=== PATIENT | female | born 1970 | race Caucasian/White ===

== ENCOUNTER 2017-10-11 14:19 | Inpatient (IN) | payer OTHER ==
[2017-10-11] MEDS ORDERED: Sodium Chloride 0.9% 1000 ML 1,000 ML IV STA (15:32)
[2017-10-11] MEDS ORDERED: Phenergan 25 MG INJ IV ONE (15:33)
--- NOTE | 2017-10-11 15:37 | ERPHSYRPT ---
- History of Present Illness Time Seen by Provider: 10/11/17 15:33 Historian: patient Exam Limitations: no limitations Patient Subjective Stated Complaint: pt co pain to abd since last night, pain to left side Triage Nursing Assessment: pt alert, resp easy, skin w/d/p. abd soft ,tender to palapate Physician History: 46-year-old white female with history of migraines, high blood pressure, asthma , hypoglycemia, arthritis, osteoporosis She arrives with complaint of pain in her left the lower quadrant in the periumbilical area symptoms since last night she states she has not been vomiting but she has been nauseous. She states pain is severe worse with movement. Past medical history includes migraines, high blood pressure, asthma, hypoglycemia, arthritis, osteoporosis. Past surgical history includes tubal ligation, left total knee arthroplasty right total hip arthroplasty and ORIF of the right forearm. Social history positive for tobacco use denies alcohol or illicit drugs. Timing/Duration: yesterday Activities at Onset: none Quality: aching, cramping Abdominal Pain Onset Location: LLQ, periumbilical Pain Radiation: flank Severity of Pain-Max: moderate Severity of Pain-Current: moderate Modifying Factors: Improves With: movement Associated Symptoms: nausea, No back, No chest pain, No diaphoresis, No diarrhea , No fever/chills, No fatigue, No headache, No heartburn, No loss of appetite, No neck pain, No rash, No shortness of breath, No syncope, No vomiting, No weakness Previous symptoms: no prior history Allergies/Adverse Reactions: codeine [Codeine] Allergy (Intermediate, Verified 04/26/13 20:46) itch morphine Allergy (Verified 10/11/17 14:47) Hx Tetanus, Diphtheria Vaccination/Date Given: Yes Hx Influenza Vaccination/Date Given: No Hx Pneumococcal Vaccination/Date Given: No Immunizations Up to Date: Yes - Review of Systems Constitutional: No Fever, No Chills Eyes: No Symptoms Ears, Nose, & Throat: No Symptoms Respiratory: No Cough, No Dyspnea Cardiac: No Chest Pain, No Edema, No Syncope Abdominal/Gastrointestinal: Abdominal Pain, Nausea, No Vomiting, No Diarrhea, No Constipation, No Hematemesis, No Hematochezia, No Melena, No Dysphagia, No Appetite Changes Genitourinary Symptoms: No Dysuria Musculoskeletal: No Back Pain, No Neck Pain Skin: No Rash Neurological: No Dizziness, No Focal Weakness, No Sensory Changes Psychological: No Symptoms Endocrine: No Symptoms All Other Systems: Reviewed and Negative - Past Medical History Pertinent Past Medical History: No Neurological History: Migraines ENT History: No Pertinent History Cardiac History: Hypertension Respiratory History: Asthma Endocrine Medical History: Hypoglycemia Musculoskeletal History: Osteoarthritis, Osteoporosis, Other (See ROS) GI Medical History: No Pertinent History History: No Pertinent History Psycho-Social History: No Pertinent History Female Reproductive Disorders: No Pertinent History - Past Surgical History Past Surgical History: Yes Neuro Surgical History: No Pertinent History Cardiac: No Pertinent History Respiratory: No Pertinent History Gastrointestinal: No Pertinent History Genitourinary: No Pertinent History Musculoskeletal: Orthopedic Surgery Female Surgical History: Tubal Ligation Other Surgical History: hip,knee,both arms - Social History Smoking Status: Current every day smoker How long have you smoked: 30 yrs Exposure to second hand smoke: Yes Drug Use: none Patient Lives Alone: No - Female History Hx Last Menstrual Period: 2 months ago Hx Now: No - Nursing Vital Signs Nursing Vital Signs: Initial Vital Signs Temperature 98.3 F 10/11/17 14:29 Pulse Rate 100 H 10/11/17 14:29 Respiratory Rate 16 10/11/17 14:29 Blood Pressure 167/88 10/11/17 14:29 O2 Sat by Pulse Oximetry 97 10/11/17 14:29 Pain Scale Pain Intensity 4 - Physical Exam General Appearance: moderate distress Eye Exam: PERRL/EOMI, eyes nml inspection Ears, Nose, Throat Exam: normal ENT inspection, pharynx normal, moist mucous membranes Neck Exam: normal inspection, non-tender, supple, full range of motion Respiratory Exam: normal breath sounds, lungs clear, No respiratory distress Cardiovascular Exam: regular rate/rhythm, normal heart sounds Gastrointestinal/Abdomen Exam: soft, normal bowel sounds, tenderness (left lower quadrant and periumbilical tenderness) Back Exam: normal inspection, normal range of motion, No CVA tenderness, No vertebral tenderness Extremity Exam: normal inspection, normal range of motion, pelvis stable Neurologic Exam: alert, oriented x 3, cooperative, school treasurer II-XII nml as tested, normal mood/affect, nml cerebellar function, sensation nml, No motor deficits Skin Exam: normal color, warm, dry SpO2 Interpretation: normal (97%) SpO2: 97 Oxygen Delivery: Room Air Ordered Tests: Active Orders 24 hr Category Date Time Status IV Insertion STAT Care 10/11/17 15:32 Active ABDOMEN AND PELVIS W CONTRAST [CT] Stat Exams 10/11/17 16:09 Taken AMYLASE Stat Lab 10/11/17 14:45 Completed CBC W DIFF Stat Lab 10/11/17 15:32 Completed CMP Stat Lab 10/11/17 14:45 Completed CULTURE,URINE Stat Lab 10/11/17 15:38 Received HCG QUALITATIVE,SERUM Stat Lab 10/11/17 14:45 Completed LIPASE Stat Lab 10/11/17 14:45 Completed UA W/ MICROSCOPIC Stat Lab 10/11/17 15:38 Completed Urine Triage Profile Stat Lab 10/11/17 14:45 Completed Transfer Order Routine Transfer 10/11/17 Ordered Medication Summary Generic Name Dose Route Start Last Admin Trade Name Freq PRN Reason Stop Dose Admin Metronidazole 500 mg in 100 mls @ 200 mls/hr 10/11/17 19:24 Flagyl 500 Mg Ivpb IV 10/11/17 19:53 STAT STA Piperacillin Sod/Tazobactam Sod 3.375 gm in 100 mls @ 200 mls/hr 10/11/17 19: 24 Zosyn 3.375gm/100 Ml D5w IV 10/11/17 19:53 STAT STA Discontinued Medications Generic Name Dose Route Start Last Admin Trade Name Freq PRN Reason Stop Dose Admin Fentanyl Citrate 50 mcg 10/11/17 16:12 10/11/17 16:16 Sublimaze 100 Mcg/2 Ml IV 10/11/17 16:13 100 mcg STAT ONE Administration Fentanyl Citrate Confirm 10/11/17 16:14 Sublimaze 100 Mcg/2 Ml Administered 10/11/17 16:15 Dose 100 mcg .ROUTE .STK-MED ONE Sodium Chloride 1,000 mls @ 999 mls/hr 10/11/17 15:32 10/11/17 15:41 Sodium Chloride 0.9% 1000 Ml IV 10/11/17 16:32 999 mls/hr .Q1H1M STA Administration Sodium Chloride Confirm 10/11/17 15:40 Sodium Chloride 0.9% 1000 Ml Administered 10/11/17 15:41 Dose 1,000 mls @ ud .ROUTE .STK-MED ONE Promethazine HCl 12.5 mg 10/11/17 15:33 10/11/17 15:41 Phenergan 25 Mg Inj IV 10/11/17 15:34 12.5 mg STAT ONE Administration Promethazine HCl Confirm 10/11/17 15:40 Phenergan 25 Mg Inj Administered 10/11/17 15:41 Dose 25 mg .ROUTE .STK-MED ONE Lab/Rad Data: Laboratory Result Diagrams 10/11/17 15:32 10/11/17 14:45 Laboratory Results 10/11/17 10/11/17 10/11/17 Range/Units 15:38 15:32 14:45 WBC 15.9 H (4.0-10.5) K/mm3 RBC 4.98 (4.1-5.4) M/mm3 Hgb 16.2 H (12.0-16.0) gm/dl Hct 46.5 (35-47) % MCV 93.4 (78-100) fl MCH 32.5 H (26-32) pg MCHC 34.8 (32-36) g/dl RDW 14.8 H (11.5-14.0) % Plt Count 283 (150-450) K/mm3 MPV 11.7 H (6-9.5) fl Gran % 83.3 H (36.0-66.0) % Eos # (Auto) 0.11 (0-0.5) Absolute Lymphs (auto) 1.69 (1.0-4.6) Absolute Monos (auto) 0.79 (0.0-1.3) Lymphocytes % 10.7 L (24.0-44.0) % Monocytes % 5.0 (0.0-12.0) % Eosinophils % 0.7 (0.00-5.0) % Basophils % 0.3 (0.0-0.4) % Absolute Granulocytes 13.23 H (1.4-6.9) Basophils # 0.04 (0-0.4) Sodium (137-145) mmol/L Potassium (3.5-5.1) mmol/L Chloride (98-107) mmol/L Carbon Dioxide (22-30) mmol/L Anion Gap (5-15) MEQ/L BUN (7-17) mg/dL Creatinine (0.52-1.04) mg/dL Estimated GFR ML/MIN Glucose (74-106) mg/dL Calcium (8.4-10.2) mg/dL Total Bilirubin (0.2-1.3) mg/dL AST (14-36) U/L ALT (0-35) U/L Alkaline Phosphatase (38-126) U/L Serum Total Protein (6.3-8.2) g/dL Albumin (3.5-5.0) g/dL Amylase (30-110) U/L Lipase (23-300) U/L Serum , Qual (Negative) Ur Collection Type CLEAN CATCH Urine Color LT.YELLOW (YELLOW) Urine Appearance CLEAR (CLEAR) Urine pH 5.0 (5-6) Ur Specific Temple 1.005 (1.005-1.025) Urine Protein NEGATIVE (Negative) Urine Ketones NEGATIVE (NEGATIVE) Urine Blood NEGATIVE (0-5) Valeriy/ul Urine Nitrite NEGATIVE (NEGATIVE) Urine Bilirubin NEGATIVE (NEGATIVE) Urine Urobilinogen NORMAL (0-1) mg/dL Ur Leukocyte Esterase MODERATE (NEGATIVE) Urine Microscopic WBC 5-10 (0-5) /HPF Ur Epithelial Cells MODERATE (FEW) /HPF Urine Bacteria MANY (NEGATIVE) /HPF Urine Culture Reflexed YES (NO) Urine Glucose NEGATIVE (NEGATIVE) mg/dL Urine Opiates Level NEGATIVE (NEGATIVE) Ur Methadone NEGATIVE (NEGATIVE) Urine Barbiturates NEGATIVE (NEGATIVE) Ur Phencyclidine (PCP) NEGATIVE (NEGATIVE) Urine Amphetamine NEGATIVE (NEGATIVE) U Benzodiazepine Level NEGATIVE (NEGATIVE) Urine Cocaine NEGATIVE (NEGATIVE) Urine Marijuana (THC) NEGATIVE (NEGATIVE) Specimen Received 10/11/17 1610 10/11/17 10/11/17 Range/Units 14:45 14:45 WBC (4.0-10.5) K/mm3 RBC (4.1-5.4) M/mm3 Hgb (12.0-16.0) gm/dl Hct (35-47) % MCV (78-100) fl MCH (26-32) pg MCHC (32-36) g/dl RDW (11.5-14.0) % Plt Count (150-450) K/mm3 MPV (6-9.5) fl Gran % (36.0-66.0) % Eos # (Auto) (0-0.5) Absolute Lymphs (auto) (1.0-4.6) Absolute Monos (auto) (0.0-1.3) Lymphocytes % (24.0-44.0) % Monocytes % (0.0-12.0) % Eosinophils % (0.00-5.0) % Basophils % (0.0-0.4) % Absolute Granulocytes (1.4-6.9) Basophils # (0-0.4) Sodium 142 (137-145) mmol/L Potassium 4.0 (3.5-5.1) mmol/L Chloride 105 (98-107) mmol/L Carbon Dioxide 25 (22-30) mmol/L Anion Gap 15.6 H (5-15) MEQ/L BUN 14 (7-17) mg/dL Creatinine 0.61 (0.52-1.04) mg/dL Estimated GFR > 60.0 ML/MIN Glucose 94 (74-106) mg/dL Calcium 10.0 (8.4-10.2) mg/dL Total Bilirubin 1.20 (0.2-1.3) mg/dL AST 22 (14-36) U/L ALT 16 (0-35) U/L Alkaline Phosphatase 105 (38-126) U/L Serum Total Protein 7.8 (6.3-8.2) g/dL Albumin 4.8 (3.5-5.0) g/dL Amylase 78 (30-110) U/L Lipase 41 (23-300) U/L Serum , Qual NEGATIVE (Negative) Ur Collection Type Urine Color (YELLOW) Urine Appearance (CLEAR) Urine pH (5-6) Ur Specific Temple (1.005-1.025) Urine Protein (Negative) Urine Ketones (NEGATIVE) Urine Blood (0-5) Valeriy/ul Urine Nitrite (NEGATIVE) Urine Bilirubin (NEGATIVE) Urine Urobilinogen (0-1) mg/dL Ur Leukocyte Esterase (NEGATIVE) Urine Microscopic WBC (0-5) /HPF Ur Epithelial Cells (FEW) /HPF Urine Bacteria (NEGATIVE) /HPF Urine Culture Reflexed (NO) Urine Glucose (NEGATIVE) mg/dL Urine Opiates Level (NEGATIVE) Ur Methadone (NEGATIVE) Urine Barbiturates (NEGATIVE) Ur Phencyclidine (PCP) (NEGATIVE) Urine Amphetamine (NEGATIVE) U Benzodiazepine Level (NEGATIVE) Urine Cocaine (NEGATIVE) Urine Marijuana (THC) (NEGATIVE) Specimen Received - Progress Progress: improved Progress Note: 10/11/17 19:15 46-year-old white female arrives with complaint of pain in her left lower quadrant and periumbilical region of her abdomen since last night she states that she's been having nausea without vomiting. Patient is a markedly tender with palpation in the left lower quadrant and the left periumbilical region she states she hurts when she moves patient has normal vital she does have an elevated white count of 15,000 hemoglobin was 16.2 hematocrit 46.5 platelets are 283 patient's chemistry is essentially normal with the exception of a anion gap of 15.6 hCG is negative ET of the abdomen is remarkable for moderately severe acute diverticulitis in the mid to distal transverse colon with small fluid collections noted superior and inferior to this segment of the transverse colon which may represent early abscesses there is also moderate inflammatory type stranding in the adjacent fat Patient was given IV normal saline I have discussed the patient's case with Dr. morgan. She has requested that we go ahead and put patient on Zosyn, Flagyl, IV fluids. Dr. Morgan asked that I discuss case with Dr. Kauffman. I've discussed the case with Dr. Eladio Kauffman reviewed the patient's labs, ct findings. He is agreeable with placing the patient on observation providing IV Zosyn Flagyl, IV fluids, fentanyl for pain Zofran for nausea and vomiting, Will obtain surgery consult. - Departure Time of Disposition: 19:23 Departure Disposition: In-patient Admission Clinical Impression: Diverticulitis, rule out abdominal abscess Abdominal pain Qualifiers: Abdominal location: left lower quadrant Qualified Code(s): R10.32 - Left lower quadrant pain Condition: Fair Critical Care Time: No Referrals: DOCTOR,NO FAMILY [Primary Care Provider] -
[2017-10-11] MEDS ORDERED: Phenergan 25 MG INJ ONE (15:40)
[2017-10-11] MEDS ORDERED: Sodium Chloride 0.9% 1000 ML 1,000 ML ONE ×2 (15:40→19:54)
[2017-10-11 15:42] LABS: BASOPHIL % 0.3 % (0.0-0.4); Basophil (Absolute #) 0.04 (0-0.4); Eosinophil % 0.7 % (0.00-5.0); Eosinophil (Absolute #) 0.11 (0-0.5); Granulocyte Absolute (ANC) 13.23 (1.4-6.9); Granulocytes % 83.3 % (36.0-66.0); Hematocrit 46.5 % (35-47); Hemoglobin 16.2 gm/dl (12.0-16.0); Lymphocyte (Absolute #) 1.69 (1.0-4.6); Lymphocytes % 10.7 % (24.0-44.0); Mean Cell Volume 93.4 fl (78-100); Mean Corpuscular Hemoglobin 32.5 pg (26-32); Mean Corpuscular Hgb Concent. 34.8 g/dl (32-36); Mean Platelet Volume 11.7 fl (6-9.5); Monocyte (Absolute #) 0.79 (0.0-1.3); Platelet Count 283 K/mm3 (150-450); Red Blood Count 4.98 M/mm3 (4.1-5.4); Red Cell Distribution Width 14.8 % (11.5-14.0); White Blood Count 15.9 K/mm3 (4.0-10.5)
[2017-10-11 15:46] LABS: ALBUMIN 4.8 g/dL (3.5-5.0); ALKALINE PHOSPHATASE 105 U/L (38-126); AMYLASE 78 U/L (30-110); ANION GAP 15.6 MEQ/L (5-15); BLOOD UREA NITROGEN 14 mg/dL (7-17); CHLORIDE 105 mmol/L (98-107); Carbon Dioxide 25 mmol/L (22-30); Creatinine 1 0.61 mg/dL (0.52-1.04); Glucose 94 mg/dL (74-106); LIPASE 41 U/L (23-300); SGOT/AST 22 U/L (14-36); SGPT/ALT 16 U/L (0-35); SODIUM 142 mmol/L (137-145); Total Protein 7.8 g/dL (6.3-8.2)
[2017-10-11] MEDS ORDERED: SUBLIMAZE 100 MCG/2 ML IV ONE (16:12)
[2017-10-11 16:13] LABS: Appearance CLEAR (CLEAR); Bacteria MANY /HPF (NEGATIVE); Bilirubin NEGATIVE (NEGATIVE); Blood NEGATIVE Ery/ul (0-5); Epithelial Cells MODERATE /HPF (FEW); Glucose NEGATIVE (NEGATIVE); Ketones NEGATIVE (NEGATIVE); Leukocyte Esterase MODERATE (NEGATIVE); Nitrite NEGATIVE (NEGATIVE); Protein,Urine Dip NEGATIVE (Negative); Specific Gravity 1.005 (1.005-1.025); Urobilinogen NORMAL mg/dL (0-1)
[2017-10-11] MEDS ORDERED: SUBLIMAZE 100 MCG/2 ML ONE (16:14)
[2017-10-11 16:15] LABS: Amphetamine,Urine NEGATIVE (NEGATIVE); Barbiturate,Urine NEGATIVE (NEGATIVE); Benzodiazepine,Urine NEGATIVE (NEGATIVE); Cocaine,Urine NEGATIVE (NEGATIVE); Methadone,Urine NEGATIVE (NEGATIVE); Opiate,Urine NEGATIVE (NEGATIVE); PCP,Urine NEGATIVE (NEGATIVE); THC,Urine NEGATIVE (NEGATIVE)
[2017-10-11] MEDS ORDERED: FLAGYL 500 MG IVPB 500 MG/100 ML BAG IV STA (19:24)
[2017-10-11] MEDS ORDERED: Zosyn 3.375GM/100 Ml D5W 3.375 GM/100 ML IVPB IV STA (19:24)
[2017-10-11] MEDS ORDERED: FLAGYL 500 MG IVPB 500 MG/100 ML BAG IV ONE (19:47)
[2017-10-11] MEDS ORDERED: SUBLIMAZE 250 MCG/5 ML IV PRN (20:50)
--- NOTE | 2017-10-11 22:19 | XRAY ---
Indication: Left abdominal pain. Multiple contiguous axial images obtained through the abdomen and pelvis using 100 cc Isovue 370 contrast only. Comparison: None. Lung bases demonstrates moderate bibasilar dependent atelectasis. No infiltrate or effusion. Heart is not enlarged. Noncontrasted stomach and bowel loops appear nonobstructed. Normal appendix. Mild diffuse Colonic fecal debris throughout. Marked diffuse scattered colonic diverticulosis with moderate diverticulitis involving the mid to distal transverse colon with small free fluid adjacently. No walled off free fluid or air. 1.9 cm left ovary cyst. Remaining liver, gallbladder, pancreas, spleen, adrenal glands, kidneys, ureters, bladder, and uterus appear unremarkable. Mild scattered aortoiliac calcifications. No AAA or pathologic retroperitoneal lymphadenopathy. Osseous structures intact with mild degenerative changes throughout the spine, bilateral L5 spondylolysis with 8 mm spondylolisthesis, and right hip arthroplasty. Impression: 1. Diffuse colonic diverticulosis with mid to distal transverse colon diverticulitis and small reactive free fluid. No walled off fluid collection or free air. 2. Mild fecal stasis without obstruction. 3. 1.9 cm dominant left ovary cyst. 4. Bilateral L5 spondylolysis with grade 1 spondylolisthesis. Comment: Preliminary interpretation was made by [facility]. No critical discrepancy. CTDI 17.55
[2017-10-11] MEDS: Zosyn 3.375GM/100 Ml D5W 3.375 GM/100 ML IVPB IV SCH (23:18)
[2017-10-11] MEDS: Nicoderm CQ 21 MG TOP SCH (23:18)
[2017-10-11] MEDS: FLAGYL 500 MG IVPB 500 MG/100 ML BAG IV SCH (23:31)
[2017-10-12] MEDS ORDERED: SUBLIMAZE 100 MCG/2 ML ONE (01:46)
[2017-10-12] MEDS: FLAGYL 500 MG IVPB 500 MG/100 ML BAG IV SCH ×3 (03:44→17:54)
[2017-10-12] MEDS: Zosyn 3.375GM/100 Ml D5W 3.375 GM/100 ML IVPB IV SCH ×4 (05:31→23:21)
[2017-10-12 05:47] LABS: BASOPHIL % 0.1 % (0.0-0.4); Basophil (Absolute #) 0.01 (0-0.4); Eosinophil % 0.5 % (0.00-5.0); Eosinophil (Absolute #) 0.07 (0-0.5); Granulocyte Absolute (ANC) 11.51 (1.4-6.9); Granulocytes % 84.4 % (36.0-66.0); Hematocrit 39.2 % (35-47); Hemoglobin 13.6 gm/dl (12.0-16.0); Lymphocyte (Absolute #) 1.16 (1.0-4.6); Lymphocytes % 8.5 % (24.0-44.0); Mean Cell Volume 94.5 fl (78-100); Mean Corpuscular Hemoglobin 32.8 pg (26-32); Mean Corpuscular Hgb Concent. 34.7 g/dl (32-36); Mean Platelet Volume 11.4 fl (6-9.5); Monocyte (Absolute #) 0.89 (0.0-1.3); Monocytes % 6.5 % (0.0-12.0); Platelet Count 251 K/mm3 (150-450); Red Blood Count 4.15 M/mm3 (4.1-5.4); Red Cell Distribution Width 14.7 % (11.5-14.0); White Blood Count 13.6 K/mm3 (4.0-10.5)
[2017-10-12 06:01] LABS: ALBUMIN 3.7 g/dL (3.5-5.0); ALKALINE PHOSPHATASE 89 U/L (38-126); ANION GAP 10.8 MEQ/L (5-15); BLOOD UREA NITROGEN 10 mg/dL (7-17); CHLORIDE 110 mmol/L (98-107); Calcium 8.8 mg/dL (8.4-10.2); Carbon Dioxide 23 mmol/L (22-30); Creatinine 1 0.53 mg/dL (0.52-1.04); Glucose 100 mg/dL (74-106); Potassium 3.6 mmol/L (3.5-5.1); SGOT/AST 10 U/L (14-36); SGPT/ALT 10 U/L (0-35); SODIUM 140 mmol/L (137-145); Total Protein 6.4 g/dL (6.3-8.2)
[2017-10-12] MEDS: Sodium Chloride 0.9% 1000 ML 1,000 ML IV SCH (06:56)
[2017-10-12] MEDS: SUBLIMAZE 100 MCG/2 ML IV PRN ×4 (07:48→23:29)
[2017-10-12] MEDS ORDERED: TYLENOL 325 MG PO PRN (10:36)
[2017-10-12] MEDS: ENOXAPARIN SODIUM SQ SCH (11:34)
[2017-10-12] MEDS: Dextrose 5% -0.45 NaCl 1000 ML 1,000 ML IV SCH (15:47)
[2017-10-12] MEDS: Nicoderm CQ 21 MG TOP SCH (23:21)
[2017-10-13] MEDS: Dextrose 5% -0.45 NaCl 1000 ML 1,000 ML IV SCH ×2 (01:43→14:46)
[2017-10-13] MEDS: Zosyn 3.375GM/100 Ml D5W 3.375 GM/100 ML IVPB IV SCH ×4 (05:06→23:46)
[2017-10-13 05:53] LABS: BASOPHIL % 0.2 % (0.0-0.4); Basophil (Absolute #) 0.02 (0-0.4); Eosinophil (Absolute #) 0.18 (0-0.5); Granulocyte Absolute (ANC) 6.42 (1.4-6.9); Granulocytes % 72.7 % (36.0-66.0); Hemoglobin 12.6 gm/dl (12.0-16.0); Lymphocyte (Absolute #) 1.56 (1.0-4.6); Lymphocytes % 17.7 % (24.0-44.0); Mean Cell Volume 95.4 fl (78-100); Mean Corpuscular Hgb Concent. 34.1 g/dl (32-36); Mean Platelet Volume 11.1 fl (6-9.5); Monocyte (Absolute #) 0.65 (0.0-1.3); Monocytes % 7.4 % (0.0-12.0); Platelet Count 235 K/mm3 (150-450); Red Blood Count 3.88 M/mm3 (4.1-5.4); Red Cell Distribution Width 14.6 % (11.5-14.0); White Blood Count 8.8 K/mm3 (4.0-10.5)
[2017-10-13] MEDS: FLAGYL 500 MG IVPB 500 MG/100 ML BAG IV SCH ×5 (06:00→23:46)
[2017-10-13 06:03] LABS: Mean Corpuscular Hemoglobin 32.4 pg (26-32)
[2017-10-13 06:08] LABS: BLOOD UREA NITROGEN 4 mg/dL (7-17); CHLORIDE 111 mmol/L (98-107); Carbon Dioxide 25 mmol/L (22-30); Creatinine 1 0.52 mg/dL (0.52-1.04); Glucose 113 mg/dL (74-106); Potassium 3.5 mmol/L (3.5-5.1); SODIUM 142 mmol/L (137-145)
[2017-10-13] MEDS: SUBLIMAZE 100 MCG/2 ML IV PRN ×3 (07:02→23:46)
--- NOTE | 2017-10-13 08:55 | PCM.NOTE ---
Date and Time: 10/13/17 0851 Subjective Assessment: She reports her abdominal pain is better. She feels like eating more solid food. She still needed some pain medication after getting up to go to the bathroom. She states her stomach feels gurgely but no nausea. - Review of Systems Constitutional: No Symptoms Eyes: No Symptoms Ears, Nose, & Throat: No Symptoms Respiratory: No Symptoms Cardiac: No Symptoms Abdominal/Gastrointestinal: Abdominal Pain, No Nausea, No Vomiting, No Diarrhea , No Constipation Genitourinary Symptoms: No Symptoms Musculoskeletal: No Symptoms Skin: No Symptoms Objective Exam General Appearance: no apparent distress, alert Neurologic Exam: alert, cooperative, normal mood/affect Skin Exam: normal color, warm, dry, No rash Respiratory Exam: normal breath sounds, lungs clear, No crackles/rales, No rhonchi, No wheezing Cardiovascular Exam: regular rate/rhythm, normal heart sounds, No murmur, No friction rub, No gallop Gastrointestinal/Abdomen Exam: soft, tenderness, No distention, No mass, No guarding Extremity Exam: normal inspection, other (no c/c/e) OBJECTIVE DATA Vital Signs: Vital Signs - 24 hr Temp Pulse Resp BP Pulse Ox 10/13/17 07:20 98.1 F 78 16 144/78 98 10/13/17 04:00 98.2 F 90 18 145/84 98 10/13/17 00:00 98.1 F 63 16 136/72 98 10/12/17 20:00 98.8 F 83 16 143/91 97 10/12/17 16:00 98.6 F 90 16 143/82 97 10/12/17 11:42 98.2 F 92 H 16 179/80 97 Pain Assessment - Last Documented Pain Intensity 3 Pain Scale Used 0-10 Pain Scale Intake and Output: Intake & Output 10/11/17 10/12/17 10/13/17 10/14/17 06:59 06:59 06:59 06:59 Intake Total 1234 4422 240 Balance 1234 4422 240 Weight 72.4 kg 72.7 kg Lab Results: Lab Results-Last 24 Hours 10/13/17 10/13/17 Range/Units 05:30 05:30 WBC 8.8 (4.0-10.5) K/mm3 RBC 3.88 L (4.1-5.4) M/mm3 Hgb 12.6 (12.0-16.0) gm/dl Hct 37.0 (35-47) % MCV 95.4 (78-100) fl MCH 32.4 H (26-32) pg MCHC 34.1 (32-36) g/dl RDW 14.6 H (11.5-14.0) % Plt Count 235 (150-450) K/mm3 MPV 11.1 H (6-9.5) fl Gran % 72.7 H (36.0-66.0) % Eos # (Auto) 0.18 (0-0.5) Absolute Lymphs (auto) 1.56 (1.0-4.6) Absolute Monos (auto) 0.65 (0.0-1.3) Lymphocytes % 17.7 L (24.0-44.0) % Monocytes % 7.4 (0.0-12.0) % Eosinophils % 2.0 (0.00-5.0) % Basophils % 0.2 (0.0-0.4) % Absolute Granulocytes 6.42 (1.4-6.9) Basophils # 0.02 (0-0.4) Sodium 142 (137-145) mmol/L Potassium 3.5 (3.5-5.1) mmol/L Chloride 111 H (98-107) mmol/L Carbon Dioxide 25 (22-30) mmol/L Anion Gap 10.0 (5-15) MEQ/L BUN 4 L (7-17) mg/dL Creatinine 0.52 (0.52-1.04) mg/dL Estimated GFR > 60.0 ML/MIN Glucose 113 H (74-106) mg/dL Calcium 9.0 (8.4-10.2) mg/dL Radiology Exams: Radiology Procedures Category Date Time Status ABDOMEN AND PELVIS W CONTRAST [CT] Stat Exams 10/11/17 16:09 Completed ABDOMEN AND PELVIS W CONTRAST [CT] Urgent Exams 10/14/17 07:00 Ordered Assessment/Plan (1) Diverticulitis Current Visit: Yes Status: Acute Onset Date: ~10/11/17 Assessment & Plan: Continue zosyn and metronidazole. Her WBC is now in normal range and her pain has improved. The general surgeon is following and considering a repeat CT scan tomorrow. Code(s): K57.92 - DVTRCLI OF INTEST, PART UNSP, W/O PERF OR ABSCESS W/O BLEED (2) Essential hypertension Current Visit: Yes Status: Acute Assessment & Plan: Will start lisinopril. Discussed side effect of cough. She has had a tubal ligation but also discussed lisinopril could cause defects. Code(s): I10 - ESSENTIAL (PRIMARY) HYPERTENSION (3) UTI (urinary tract infection) Current Visit: Yes Status: Acute Qualifiers: Urinary tract infection type: acute cystitis Hematuria presence: without hematuria Qualified Code(s): N30.00 - Acute cystitis without hematuria Assessment & Plan: Urine culture grew E. coli susceptible to zosyn. Continue with this. Code(s): N39.0 - URINARY TRACT INFECTION, SITE NOT SPECIFIED (4) Ovarian cyst Current Visit: Yes Status: Acute Qualifiers: Laterality: left Qualified Code(s): N83.202 - Unspecified ovarian cyst, left side Assessment & Plan: Will plan to follow up as outpatient to make sure this has resolved in 1-2 months. Code(s): N83.209 - UNSPECIFIED OVARIAN CYST, UNSPECIFIED SIDE (5) Tobacco abuse Current Visit: Yes Status: Acute Code(s): Z72.0 - TOBACCO USE
[2017-10-13] MEDS: ENOXAPARIN SODIUM SQ SCH (11:02)
[2017-10-13] MEDS: Zestril 10 MG PO SCH (11:03)
[2017-10-13] MEDS: Zofran 4 MG/2 ML VIAL IV PRN (15:53)
[2017-10-13] MEDS: Nicoderm CQ 21 MG TOP SCH (23:46)
[2017-10-14] MEDS: Dextrose 5% -0.45 NaCl 1000 ML 1,000 ML IV SCH ×2 (01:57→09:32)
[2017-10-14] MEDS: Sodium Chloride 0.9% 1000 ML 1,000 ML IV SCH (01:58)
[2017-10-14] MEDS: FLAGYL 500 MG IVPB 500 MG/100 ML BAG IV SCH ×4 (05:13→23:30)
[2017-10-14] MEDS: Zosyn 3.375GM/100 Ml D5W 3.375 GM/100 ML IVPB IV SCH ×3 (05:13→18:45)
[2017-10-14 05:41] LABS: BASOPHIL % 0.2 % (0.0-0.4); Basophil (Absolute #) 0.02 (0-0.4); Eosinophil (Absolute #) 0.17 (0-0.5); Granulocyte Absolute (ANC) 5.95 (1.4-6.9); Granulocytes % 71.5 % (36.0-66.0); Hematocrit 34.7 % (35-47); Hemoglobin 11.9 gm/dl (12.0-16.0); Lymphocytes % 19.2 % (24.0-44.0); Mean Cell Volume 95.1 fl (78-100); Mean Corpuscular Hemoglobin 32.6 pg (26-32); Mean Corpuscular Hgb Concent. 34.3 g/dl (32-36); Mean Platelet Volume 11.3 fl (6-9.5); Monocyte (Absolute #) 0.59 (0.0-1.3); Monocytes % 7.1 % (0.0-12.0); Platelet Count 233 K/mm3 (150-450); Red Blood Count 3.65 M/mm3 (4.1-5.4); Red Cell Distribution Width 14.8 % (11.5-14.0); White Blood Count 8.3 K/mm3 (4.0-10.5)
[2017-10-14 05:48] LABS: ANION GAP 10.2 MEQ/L (5-15); BLOOD UREA NITROGEN 6 mg/dL (7-17); CHLORIDE 109 mmol/L (98-107); Calcium 8.9 mg/dL (8.4-10.2); Carbon Dioxide 27 mmol/L (22-30); Creatinine 1 0.65 mg/dL (0.52-1.04); Glucose 104 mg/dL (74-106); Potassium 3.9 mmol/L (3.5-5.1); SODIUM 142 mmol/L (137-145)
[2017-10-14] MEDS: SUBLIMAZE 100 MCG/2 ML IV PRN ×2 (08:07→20:54)
--- NOTE | 2017-10-14 08:48 | PCM.NOTE ---
Date and Time: 10/14/17846 Subjective Assessment: Patient reports some nausea with drinking the contrast for the CT scan. Otherwise, she states she still has some left sided abdominal pain but it has gotten better. Her daughter and son are at the bedside this AM. She reports some back pain for being in bed for so long. She reports runny diarrhea without blood also that started yesterday. - Review of Systems Constitutional: No Symptoms Eyes: No Symptoms Ears, Nose, & Throat: No Symptoms Respiratory: No Symptoms Cardiac: No Symptoms Abdominal/Gastrointestinal: Abdominal Pain, Nausea, Diarrhea, No Vomiting Objective Exam General Appearance: no apparent distress, alert Neurologic Exam: alert, cooperative, normal mood/affect Skin Exam: normal color, warm, dry, No rash Respiratory Exam: normal breath sounds, lungs clear, No crackles/rales, No rhonchi, No wheezing Cardiovascular Exam: regular rate/rhythm, normal heart sounds, No murmur, No friction rub, No gallop Gastrointestinal/Abdomen Exam: soft, normal bowel sounds, tenderness, other ( mild left lower quadrant tenderness), No distention, No mass Extremity Exam: normal inspection, other (no c/c/e) OBJECTIVE DATA Vital Signs: Vital Signs - 24 hr Temp Pulse Resp BP Pulse Ox 10/14/17 06:51 97.9 F 78 16 146/74 97 10/14/17 04:00 98.3 F 77 16 129/68 97 10/14/17 00:00 97.6 F 66 18 138/75 97 10/13/17 20:00 98.4 F 67 18 132/63 97 10/13/17 16:00 98.2 F 77 16 159/77 97 10/13/17 11:32 98.0 F 77 16 182/87 99 Pain Assessment - Last Documented Pain Intensity 8 Pain Scale Used 0-10 Pain Scale Intake and Output: Intake & Output 10/12/17 10/13/17 10/14/17 10/15/17 06:59 06:59 06:59 06:59 Intake Total 1234 4422 3498 0 Balance 1234 4422 3498 0 Weight 72.4 kg 72.7 kg 70.8 kg Lab Results: Lab Results-Last 24 Hours 10/14/17 10/14/17 Range/Units 05:10 05:10 WBC 8.3 (4.0-10.5) K/mm3 RBC 3.65 L (4.1-5.4) M/mm3 Hgb 11.9 L (12.0-16.0) gm/dl Hct 34.7 L (35-47) % MCV 95.1 (78-100) fl MCH 32.6 H (26-32) pg MCHC 34.3 (32-36) g/dl RDW 14.8 H (11.5-14.0) % Plt Count 233 (150-450) K/mm3 MPV 11.3 H (6-9.5) fl Gran % 71.5 H (36.0-66.0) % Eos # (Auto) 0.17 (0-0.5) Absolute Lymphs (auto) 1.60 (1.0-4.6) Absolute Monos (auto) 0.59 (0.0-1.3) Lymphocytes % 19.2 L (24.0-44.0) % Monocytes % 7.1 (0.0-12.0) % Eosinophils % 2.0 (0.00-5.0) % Basophils % 0.2 (0.0-0.4) % Absolute Granulocytes 5.95 (1.4-6.9) Basophils # 0.02 (0-0.4) Sodium 142 (137-145) mmol/L Potassium 3.9 (3.5-5.1) mmol/L Chloride 109 H (98-107) mmol/L Carbon Dioxide 27 (22-30) mmol/L Anion Gap 10.2 (5-15) MEQ/L BUN 6 L (7-17) mg/dL Creatinine 0.65 (0.52-1.04) mg/dL Estimated GFR > 60.0 ML/MIN Glucose 104 (74-106) mg/dL Calcium 8.9 (8.4-10.2) mg/dL Radiology Exams: Radiology Procedures Category Date Time Status ABDOMEN AND PELVIS W CONTRAST [CT] Urgent Exams 10/14/17 07:00 Ordered Assessment/Plan (1) Diverticulitis Current Visit: Yes Status: Acute Onset Date: ~10/11/17 Assessment & Plan: Continue zosyn and metronidazole. Awaiting surgery consult and repeat CT scan. Clinically she has improved. Code(s): K57.92 - DVTRCLI OF INTEST, PART UNSP, W/O PERF OR ABSCESS W/O BLEED (2) Essential hypertension Current Visit: Yes Status: Acute Assessment & Plan: Better controlled with starting lisinopril yesterday. Code(s): I10 - ESSENTIAL (PRIMARY) HYPERTENSION (3) UTI (urinary tract infection) Current Visit: Yes Status: Acute Onset Date: ~10/13/17 Qualifiers: Urinary tract infection type: acute cystitis Hematuria presence: without hematuria Qualified Code(s): N30.00 - Acute cystitis without hematuria Assessment & Plan: Susceptible to antibiotics being used for diverticulitis. This would be 3 days of antibiotics so should be adequately treated. Code(s): N39.0 - URINARY TRACT INFECTION, SITE NOT SPECIFIED (4) Ovarian cyst Current Visit: Yes Status: Acute Qualifiers: Laterality: left Qualified Code(s): N83.202 - Unspecified ovarian cyst, left side Assessment & Plan: Plan to follow up as outpatient. Code(s): N83.209 - UNSPECIFIED OVARIAN CYST, UNSPECIFIED SIDE (5) Tobacco abuse Current Visit: Yes Status: Acute Assessment & Plan: She is thinking about quitting. Code(s): Z72.0 - TOBACCO USE
[2017-10-14] MEDS: Zestril 10 MG PO SCH (09:40)
[2017-10-14] MEDS: ENOXAPARIN SODIUM SQ SCH (09:40)
--- NOTE | 2017-10-14 09:53 | XRAY ---
Indication: Left lower quadrant pain and nausea. Multiple contiguous axial images obtained through the abdomen and pelvis using 80 cc Isovue 370 contrast. Oral contrast also used. Comparison: October 11, 2017. Lung bases demonstrates worsening bibasilar dependent and subsegmental atelectasis, left greater than right. No effusion. Heart is not enlarged. Contrasted stomach and bowel loops again nonobstructed. There remains diffuse colonic diverticulosis. Previous transverse colonic diverticulitis improved with small mild residual diverticulitis in the mid transverse colon. Previous adjacent pericolonic free fluid has also improved with tiny residual. New small pericholecystic fluid without gallstones that may or may not be related. Normal appendix. Stable 1.9 cm left ovary cyst and 5 mm left renal cyst. There is a 1.8 cm right posterior lateral hepatic hemangioma better visualized today. Remaining liver, gallbladder, pancreas, spleen, adrenal glands, kidneys, ureters, bladder, and uterus appear unremarkable. Stable mild aortoiliac calcifications. Again no AAA or pathologic retroperitoneal lymphadenopathy. Osseous structures again demonstrates mild degenerative changes throughout the spine, bilateral L5 spondylolysis with grade 1 spondylolisthesis, and right hip arthroplasty. Impression: 1. Previous transverse colonic diverticulitis including pericolonic free fluid has improved with small mild residual as detailed. New small pericholecystic fluid may or may not be related. 2. Stable diffuse scattered colonic diverticulosis, hepatic hemangioma, left renal cyst, and left ovary cyst. CT DI 20.90
--- NOTE | 2017-10-14 10:59 | HP ---
HISTORY OF PRESENT ILLNESS: This is a 46 year-old patient who presented to the emergency department with some left lower quadrant pain. She reports two nights ago her stomach started hurting and yesterday it was worse in the morning and continued to get worse as she was working. She reports around 1400 hours after a meeting she could not get up out of a chair. She has not had any problems like this before. She reports her last stool was two days ago and usually she goes every day but she does not feel constipated. She has not seen any blood in her stool. No diarrhea. No constipation. No fevers. She reports her abdomen left lower quadrant will hurt when she urinates. She reports current pain medication here in the hospital is helping with her pain. The pain is worse with moving or coughing in the left lower quadrant. REVIEW OF SYSTEMS: No dysuria. No increased urinary frequency. She has had some cough productive of some phlegm which she attributes to smoking. Some nausea but no vomiting. She reports she has pain in her chest every day that is stabbing and better if she relaxes a little, worse in the evening after she slows down from working. The pain in her chest is stabbing and heavy at times. No nausea with it, sometimes dyspnea. No radiation and lasts less than one minute. PAST MEDICAL HISTORY: Asthma, hypertension but she has never been treated for this or taking any medications for it. She reports history of hypoglycemia with blood sugars 50 to 60. PAST SURGICAL HISTORY: Left knee replacement. Oswaldo put in her right femur and then removed. Right hip replacement. She had placed some pins to her right arm. Tubal ligation. CURRENT MEDICATIONS: None. ALLERGIES: CODEINE, MORPHINE. SOCIAL HISTORY: She smokes one half to one pack per day. She is trying to quit. No alcohol use. Her son lives with her. FAMILY HISTORY: Her mother is and had breast cancer and in her 40's. Her father is and had cancer, hypertension and some psychiatric problems. PHYSICAL EXAMINATION: VITAL SIGNS: Temperature current 99F, temperature max 99.5F, heart rate 67 to 102 currently 89, respiratory rate 16 to 18, blood pressure 119 to 167 over 74 to 89, weight 72.4 kg. Oxygen saturation 95 to 98% on room air. GENERAL: The patient is lying in bed a pleasant talkative lady. CVS: She has a regular rate and rhythm. No murmurs, gallops or rubs. CHEST: Clear to auscultation bilaterally. No crackles or wheezes. ABDOMEN: Hypoactive bowel sounds, soft. She has tenderness in the left lower quadrant and left upper quadrant. No guarding. No rigidity. EXTREMITIES: No clubbing, cyanosis or edema. SKIN: Warm, dry and intact. LABORATORY DATA AND TESTS: Her white blood cell count on admission was 15.9 and repeat 13.6. She has 84% granulocytes. CMP chloride slightly high at 110. UA had many bacteria. Urine culture is growing gram negative oswaldo. Urine tox was negative. Her CT scan was read as diverticulitis and a 1.9 cm dominant left ovarian cyst. Please see the radiologist dictation for the full report. ASSESSMENT AND PLAN: 1) DIVERTICULITIS. She is on metronidazole and Zosyn. Her white blood cell count is improving. Her nurses report that the general surgeon have seen her and are planning on repeating the CT scan on Saturday. Will continue Fentanyl as needed for pain. 2) URINARY TRACT INFECTION: Will continue with Zosyn. Urine cultures in lab. 3) LEFT OVARIAN CYST: This could be contributing to her pain so will need to be followed up as an outpatient with ultrasound in two to four weeks. 4) TOBACCO ABUSE: The patient reports she is working on quitting. 5) HISTORY OF CHEST PAIN: Will check an EKG today. 6) HISTORY OF HYPERTENSION: Will monitor her blood pressure and if needed start her on a blood pressure medication.
--- NOTE | 2017-10-14 11:32 | CONS ---
CONSULT DATE: 10/11/2017 REASON FOR CONSULT: Acute diverticulitis with free fluid. HISTORY: This is her first episode. She did not eat anything unusual. She thought initially it was just belly pain yesterday nothing special but it got worse and then she could not hardly move. She is moving just a little bit in the emergency room. She does appear to be in distress. Her vital signs are stable. She has very little medical history otherwise. PAST SURGICAL HISTORY: Tubal ligation. ALLERGIES: CODEINE, MORPHINE. MEDICATIONS: Multivitamins, ibuprofen. SOCIAL HISTORY: Positive tobacco. Occasional ETOH. FAMILY HISTORY: Negative. REVIEW OF SYSTEMS: CVS: Negative. PULMONARY: Negative. GI: Per present illness. : Negative. ORTHO/NEURO: Negative. PHYSICAL EXAMINATION: Alert. She is a little bit still. She appears to be in distress but she does not appear to be deathly toxic. CHEST: Clear. COR: Regular. ABDOMEN: Tender left mid abdomen just a little higher than the average diverticulitis but still right there left mid abdomen. LAB DATA AND TESTS: CT scan as noted with suggestion of leakage and diverticulitis. White blood cell count 14,000. Several family members are present. IMPRESSION: General course of diverticulitis but as few of these move on very readily a lot of these stay in the hospital for four to five days of GI rest, IV fluids, IV antibiotics, pass gas, get better, have repeat CT scan. Sometimes she has a fluid collection sometimes needing radiological drainage sometimes still needing surgical drainage or surgical resection. If surgical resection is done in the hospital it often times has a colostomy. At this time she seems to have a mild to moderate episode. I am not expecting her to crash and be septic tonight but there is always a possibility. I suspect as she moves along and we advance her to discharge and then do endoscopic examination in six to eight weeks of the sigmoid.
[2017-10-14] MEDS: Zofran 4 MG/2 ML VIAL IV PRN (12:38)
[2017-10-14] MEDS: Nicoderm CQ 21 MG TOP SCH (23:30)
[2017-10-15] MEDS: Zosyn 3.375GM/100 Ml D5W 3.375 GM/100 ML IVPB IV SCH ×2 (00:33→05:35)
[2017-10-15] MEDS: SUBLIMAZE 100 MCG/2 ML IV PRN ×2 (04:28→08:32)
[2017-10-15 05:28] LABS: BASOPHIL % 0.3 % (0.0-0.4); Basophil (Absolute #) 0.02 (0-0.4); Eosinophil % 1.9 % (0.00-5.0); Eosinophil (Absolute #) 0.13 (0-0.5); Granulocyte Absolute (ANC) 4.51 (1.4-6.9); Granulocytes % 65.1 % (36.0-66.0); Hematocrit 35.4 % (35-47); Hemoglobin 12.1 gm/dl (12.0-16.0); Lymphocyte (Absolute #) 1.81 (1.0-4.6); Lymphocytes % 26.1 % (24.0-44.0); Mean Cell Volume 94.4 fl (78-100); Mean Corpuscular Hgb Concent. 34.2 g/dl (32-36); Mean Platelet Volume 11.2 fl (6-9.5); Monocyte (Absolute #) 0.46 (0.0-1.3); Monocytes % 6.6 % (0.0-12.0); Platelet Count 241 K/mm3 (150-450); Red Blood Count 3.75 M/mm3 (4.1-5.4); Red Cell Distribution Width 14.6 % (11.5-14.0); White Blood Count 6.9 K/mm3 (4.0-10.5)
[2017-10-15 05:33] LABS: Mean Corpuscular Hemoglobin 32.2 pg (26-32)
[2017-10-15 05:48] LABS: ANION GAP 11.7 MEQ/L (5-15); BLOOD UREA NITROGEN 3 mg/dL (7-17); CHLORIDE 108 mmol/L (98-107); Calcium 8.9 mg/dL (8.4-10.2); Carbon Dioxide 25 mmol/L (22-30); Creatinine 1 0.52 mg/dL (0.52-1.04); Glucose 97 mg/dL (74-106); Potassium 3.4 mmol/L (3.5-5.1); SODIUM 142 mmol/L (137-145)
[2017-10-15] MEDS: FLAGYL 500 MG IVPB 500 MG/100 ML BAG IV SCH (06:16)
[2017-10-15] MEDS: Dextrose 5% -0.45 NaCl 1000 ML 1,000 ML IV SCH (07:46)
[2017-10-15] MEDS: Zestril 10 MG PO SCH (08:32)
[2017-10-15] MEDS: ENOXAPARIN SODIUM SQ SCH (08:32)
--- NOTE | 2017-10-15 08:51 | PCM.NOTE ---
Date and Time: 10/15/17 0851 OBJECTIVE DATA Vital Signs: Vital Signs - 24 hr Temp Pulse Resp BP Pulse Ox 10/15/17 06:56 97.9 F 62 16 129/69 98 10/15/17 04:00 98.2 F 72 16 136/71 96 10/15/17 00:00 98.2 F 60 16 169/78 98 10/14/17 20:00 98.5 F 67 18 162/83 99 10/14/17 16:00 98.7 F 67 16 143/76 99 10/14/17 11:27 98.0 F 71 16 127/60 95 Pain Assessment - Last Documented Pain Intensity 4 Pain Scale Used 0-10 Pain Scale Intake and Output: Intake & Output 10/13/17 10/14/17 10/15/17 10/16/17 06:59 06:59 06:59 06:59 Intake Total 4422 3498 2230 120 Output Total 50 Balance 4422 3498 2180 120 Weight 72.7 kg 70.8 kg 69.5 kg Lab Results: Lab Results-Last 24 Hours 10/15/17 10/15/17 Range/Units 05:08 05:08 WBC 6.9 (4.0-10.5) K/mm3 RBC 3.75 L (4.1-5.4) M/mm3 Hgb 12.1 (12.0-16.0) gm/dl Hct 35.4 (35-47) % MCV 94.4 (78-100) fl MCH 32.2 H (26-32) pg MCHC 34.2 (32-36) g/dl RDW 14.6 H (11.5-14.0) % Plt Count 241 (150-450) K/mm3 MPV 11.2 H (6-9.5) fl Gran % 65.1 (36.0-66.0) % Eos # (Auto) 0.13 (0-0.5) Absolute Lymphs (auto) 1.81 (1.0-4.6) Absolute Monos (auto) 0.46 (0.0-1.3) Lymphocytes % 26.1 (24.0-44.0) % Monocytes % 6.6 (0.0-12.0) % Eosinophils % 1.9 (0.00-5.0) % Basophils % 0.3 (0.0-0.4) % Absolute Granulocytes 4.51 (1.4-6.9) Basophils # 0.02 (0-0.4) Sodium 142 (137-145) mmol/L Potassium 3.4 L (3.5-5.1) mmol/L Chloride 108 H (98-107) mmol/L Carbon Dioxide 25 (22-30) mmol/L Anion Gap 11.7 (5-15) MEQ/L BUN 3 L (7-17) mg/dL Creatinine 0.52 (0.52-1.04) mg/dL Estimated GFR > 60.0 ML/MIN Glucose 97 (74-106) mg/dL Calcium 8.9 (8.4-10.2) mg/dL Radiology Exams: Radiology Procedures Category Date Time Status ABDOMEN AND PELVIS W CONTRAST [CT] Urgent Exams 10/14/17 07:00 Completed Multi-Disciplinary Progress Notes: Multi-Disciplinary Progress Notes 10/14/17 10:20 (created 10/14/17 14:20) Case Management Note by Kelsy Aldridge PLANS TO RETURN HOME TO PRE EPISODIC LEVEL OF FNX. INDEPENDENT WITH ALL ADL'S. DENIES ADDNL NEEDS AT DISCHARGE. Initialized on 10/14/17 14:20 - END OF NOTE Assessment/Plan (1) Diverticulitis Current Visit: Yes Status: Acute Onset Date: ~10/11/17 Code(s): K57.92 - DVTRCLI OF INTEST, PART UNSP, W/O PERF OR ABSCESS W/O BLEED (2) Essential hypertension Current Visit: Yes Status: Acute Code(s): I10 - ESSENTIAL (PRIMARY) HYPERTENSION (3) UTI (urinary tract infection) Current Visit: Yes Status: Acute Onset Date: ~10/13/17 Qualifiers: Urinary tract infection type: acute cystitis Hematuria presence: without hematuria Qualified Code(s): N30.00 - Acute cystitis without hematuria Code(s): N39.0 - URINARY TRACT INFECTION, SITE NOT SPECIFIED (4) Ovarian cyst Current Visit: Yes Status: Acute Qualifiers: Laterality: left Qualified Code(s): N83.202 - Unspecified ovarian cyst, left side Code(s): N83.209 - UNSPECIFIED OVARIAN CYST, UNSPECIFIED SIDE (5) Tobacco abuse Current Visit: Yes Status: Acute Code(s): Z72.0 - TOBACCO USE
--- NOTE | 2017-10-15 09:55 | PCM.DCORD ---
- Discharge Discharge Date: 10/15/17 Disposition: Home, Self-Care Condition: Good Prescriptions: New Amoxicillin/Potassium Clav [Augmentin 875 mg (Amox Tr-K Clv 875-125 mg)] 1 each PO BID #12 tablet Metronidazole 500 mg [Flagyl 500 MG] 500 mg PO QID #24 tablet Acetaminophen 325 mg [Tylenol 325 mg] 650 mg PO Q4H PRN PRN tablet PRN Reason: Pain And/Or Fever Lisinopril 10 mg [Zestril 10 MG] 10 mg PO DAILY #30 tablet Instructions: High Fiber Diet, Diverticulitis (DC), Diverticulosis (DC) Additional Instructions: You may return to work on 10/21/17. When you return to work, you should not lift more than 20 lbs. If you are having any problems before your follow up appointment with Dr. Gayle, call the clinic or go to [facility] or the ER. You may also take ibuprofen as directed on the bottle as needed for pain. Follow up with: CONSTANZA GAYLE [ACTIVE STAFF] - 10/29/17 2:45 pm LIVE QUIROZ [COURTESY STAFF] - 1 Week
[2017-10-15 11:20] VITALS: BP 138/80; PULSE 68; O2SAT 97
--- NOTE | 2017-10-17 09:05 | DS ---
DISCHARGE DIAGNOSES: 1) DIVERTICULITIS. 2) HYPERTENSION. 3) URINARY TRACT INFECTION. 4) OVARIAN CYSTS ON THE LEFT SIDE. 5) TOBACCO ABUSE. DISCHARGE PHYSICAL EXAMINATION: VITALS: Temperature current 97.9F, temperature max 98.7F, heart rate 60 to 72, respiratory rate 16 to 18, blood pressure 129 to 169 over 69 to 83. Oxygen saturation 95 to 99% on room air. Discharge weight 69.5 kg. GENERAL: The patient is a pleasant talkative lady lying in bed in no acute distress. CVS: She had a regular rate and rhythm. No murmurs, gallops or rubs are appreciated. CHEST: Clear to auscultation bilaterally. No crackles or wheezes. ABDOMEN: Very mild left lower quadrant and a little bit of tenderness in the right upper quadrant. Normal bowel sounds. No guarding. No rigidity. EXTREMITIES: No clubbing, cyanosis or edema. SKIN: Warm, dry and intact. HOSPITAL COURSE: 1) DIVERTICULITIS: She was started on Zosyn and metronidazole and was on this for four days during her hospitalization. I have written for a six day course of Augmentin taken b.i.d., metronidazole four times a day. She saw Dr. Delarosa, General Surgeon, while she was here and she reports he plans to do a colonoscopy as an outpatient about [address]. The patient did have improved abdominal pain and was able to tolerate a regular diet before discharge without any problems. She had repeat CT scan yesterday that showed improving images. 2) HYPERTENSION: EKG was normal. She was started on lisinopril 10 mg p.o. daily and will plan to follow up as an outpatient. 3) LEFT OVARIAN CYST: This was found on CT scan, will plan to follow up with a pelvic ultrasound in approximately a month. 4) TOBACCO ABUSE: The patient reports that she is working on quitting smoking. 5) URINARY TRACT INFECTION: She was found to have a bladder infection on urine culture that was susceptible to Zosyn and so that was treated during her hospital stay. She has not had any symptoms from this. DISCHARGE MEDICATIONS: Please see the discharge order. FOLLOW UP: She is to follow up with me in the clinic with the visit scheduled for 10/29/2017. She is to call the clinic or go to urgent care or the emergency room if she has problems before this. She is to follow up with myself as well as Dr. Delarosa. DISPOSITION: The patient was discharged to home in fair condition.
== END 2017-10-15 12:14 | disposition home or self-care (01) | DRG 392 ==
LOC: ED 14:19 → MED SURG 20:37
PROVIDERS: ADMIT Internal Medicine; ATTEND Internal Medicine
DX: K57.92 Diverticulitis of intestine, part unspecified, without perforation or abscess without bleeding (principal); N39.0 Urinary tract infection, site not specified; N83.202 Unspecified ovarian cyst, left side; I10 Essential (primary) hypertension; J45.909 Unspecified asthma, uncomplicated; Z72.0 Tobacco use; Z80.3 Family history of malignant neoplasm of breast
CPT/HCPCS: 36000; 36415; 74177; 80048; 80053; 80307; 81000; 82150; 83690; 84703; 85025; 87077; 87086; 87186; 93005; 96374; 96375; 99285; J1650; J2405; J2543; J2550; J3010; A9270-GY

== ENCOUNTER 2022-06-15 10:43 | Emergency (ER) | payer OTHER ==
[2022-06-15] MEDS ORDERED: BABY ASPIRIN 81 MG CHEW PO ONE (10:56)
[2022-06-15] MEDS ORDERED: Nitrostat 0.4 MG (ED) SL ONE ×2 (10:56→11:20)
--- NOTE | 2022-06-15 11:18 | ERPHSYRPT ---
- History of Present Illness Historian: patient Exam Limitations: no limitations Patient Subjective Stated Complaint: Pt began having chest pain last night and went to see Dr. Jam Isaac today and she sent her to the ER due to hypertension, pt states that her chest and left arm feel numb Triage Nursing Assessment: Pt brought to the ER by her boyfriend, rates pain as 3/10 but states she has numbness in the chest and arm, no edema, pulses normal, skin n/w/d, states that she was told that she had a mild WA before, doesn't appear to be in any distress and appears to be more scared Physician History: 51 yo WF w increased BP since yesterday. Pt sent from her PCP office. She states that she had mid-sternal chest pain yesterday at 20:30 which started in her R scapular area and migrated to her chest. Pain was 10 at 20:30 but states that she only has mid-sternal squeezing at this time which is rated a 4/10. Pain accompanied by dyspnea/nausea/diaphoresis wo vomiting. Pt has h/o hyperlipidemia/HTN/1ppd smoker until 5 yrs ago. She is not a diabetic and states that she was hospitalized for chest pain in the past wo a definite diagnosis. Timing/Duration: other (2030 yesterday) Activities at Onset: rest Quality: other (Squeezing) Location: substernal Chest Pain Radiation: no radiation Severity of Pain-Max: severe Severity of Pain-Current: mild Modifying Factors: Improves With: nothing Associated Symptoms: nausea, shortness of breath, back pain, No vomiting Prior Chest Pain/Cardiac Workup: non-cardiac Nitro Today/Relief: no nitro taken today Aspirin Treatment Today: no aspirin today Allergies/Adverse Reactions: codeine [Codeine] Allergy (Intermediate, Verified 06/15/22 11:06) itch morphine Allergy (Verified 06/15/22 11:06) Home Medications: Lisinopril 10 mg [Zestril 10 MG] 20 mg PO DAILY 11/21/17 [History] Furosemide 20 mg [Lasix 20 mg] 20 mg PO DAILY PRN 06/15/22 [History] PANTOPRAZOLE 40 mg Tablet [Protonix 40MG Tablet] 40 mg PO QAM 06/15/22 [History] Potassium Chloride 10 meq PO DAILY PRN 06/15/22 [History] Hx Tetanus, Diphtheria Vaccination/Date Given: Yes Hx Influenza Vaccination/Date Given: No Hx Pneumococcal Vaccination/Date Given: No Travel Risk - International Travel Have you traveled outside of the country in past 3 weeks: No - Coronavirus Screening Are you exhibiting any of the following symptoms?: No Close contact with a COVID-19 positive Pt in past 14-21 Days: No - Vaccine Status Have you recieved a Covid-19 vaccination: Yes Safety And Health Consultant: [email or web address] - Vaccination Dates Date of 2cond Vaccination (if applicable): 2020 - Review of Systems Constitutional: No Symptoms Eyes: No Symptoms Ears, Nose, & Throat: No Symptoms Respiratory: No Symptoms, Dyspnea Cardiac: No Symptoms, Chest Pain Abdominal/Gastrointestinal: No Symptoms, Nausea Genitourinary Symptoms: No Symptoms Musculoskeletal: No Symptoms Skin: No Symptoms Neurological: No Symptoms Psychological: No Symptoms Endocrine: No Symptoms Hematologic/Lymphatic: No Symptoms Immunological/Allergic: No Symptoms - Past Medical History Pertinent Past Medical History: Yes Neurological History: Migraines ENT History: No Pertinent History Cardiac History: Hypertension Respiratory History: Asthma Endocrine Medical History: Hypoglycemia Musculoskeletal History: Osteoarthritis, Osteoporosis, Other GI Medical History: No Pertinent History, Diverticulosis History: No Pertinent History Psycho-Social History: No Pertinent History Female Reproductive Disorders: No Pertinent History - Past Surgical History Past Surgical History: Yes Neuro Surgical History: No Pertinent History Cardiac: No Pertinent History Respiratory: No Pertinent History Gastrointestinal: No Pertinent History Genitourinary: No Pertinent History Musculoskeletal: Orthopedic Surgery Female Surgical History: Tubal Ligation Other Surgical History: hip,kneeboth sides of rt forearm - Social History Smoking Status: Former smoker How long have you smoked: 30 yrs Exposure to second hand smoke: No Drug Use: none Patient Lives Alone: No - Nursing Vital Signs Nursing Vital Signs: Initial Vital Signs Temperature 98.2 F 06/15/22 10:45 Pulse Rate 86 06/15/22 10:45 Blood Pressure 205/100 06/15/22 10:45 O2 Sat by Pulse Oximetry 98 06/15/22 10:45 Pain Scale Pain Intensity 0 Hypertensive - Physical Exam General Appearance: no apparent distress, anxiety Eye Exam: PERRL/EOMI, eyes nml inspection Ears, Nose, Throat Exam: normal ENT inspection, TMs normal, pharynx normal, moist mucous membranes Neck Exam: normal inspection, non-tender, supple, full range of motion, No meningismus, No mass, No Brudzinski, No Kernig's, No carotid bruit Respiratory Exam: normal breath sounds, lungs clear, airway intact Cardiovascular Exam: regular rate/rhythm, normal heart sounds, normal peripheral pulses, capillary refill <2 sec, No murmur Gastrointestinal/Abdomen Exam: soft, normal bowel sounds, No tenderness Back Exam: normal inspection, normal range of motion, No CVA tenderness, No vertebral tenderness Extremity Exam: normal inspection, normal range of motion Neurologic Exam: alert, oriented x 3, cooperative, chief librarian circulation department II-XII nml as tested, normal mood/affect, nml cerebellar function, nml station & gait, sensation nml, No motor deficits, No sensory deficit Skin Exam: normal color, warm, dry Lymphatic Exam: No adenopathy SpO2 Interpretation: normal SpO2: 98 O2 Delivery: Room Air - Course Nursing assessment & vital signs reviewed: Yes EKG Interpreted by Me: RATE (NSR/Rate 70/Normal QT-QTc/Old inferior WA/Poor R wave progression/No acute ST segment changes) - Radiology Exams Chest X-ray Interpretation: Reviewed by me (Patchy L base hazy airspace disease), Discussed w/ radiologist - CT Exams Chest CT Interpretation: Discussed w/radiologist (CT chest w contrast/No acute patho logy/Minimal arteriosclerotic aorta) Ordered Tests: Active Orders 24 hr Category Date Time Status EKG-ER Only STAT Care 06/15/22 10:56 Completed IV Insertion STAT Care 06/15/22 10:56 Completed CHEST 1 VIEW (PORTABLE) Stat Exams 06/15/22 10:56 Completed CHEST WITH CONTRAST [CT] Stat Exams 06/15/22 14:35 Completed CBC W DIFF Stat Lab 06/15/22 11:30 Completed CMP Stat Lab 06/15/22 11:30 Completed D-DIMER QUANTITATIVE Stat Lab 06/15/22 11:30 Completed NT PRO BNPII Stat Lab 06/15/22 11:30 Completed PROTIME WITH INR Stat Lab 06/15/22 11:30 Completed PTT Stat Lab 06/15/22 11:30 Completed T4 (Thyroxine) Stat Lab 06/15/22 11:30 Completed TROPONIN Q4H Lab 06/15/22 11:30 Completed TROPONIN Q4H Lab 06/15/22 13:27 Completed TROPONIN Q4H Lab 06/15/22 19:00 Ordered TSH [TSH, 3RD Generation] Stat Lab 06/15/22 11:30 Completed Medication Summary Discontinued Medications Generic Name Dose Route Start Last Admin Trade Name Ragini PRN Reason Stop Dose Admin Aspirin 324 mg 06/15/22 10:56 06/15/22 11:15 Aspirin 81 Mg Tab.Chew PO 06/15/22 10:57 324 mg STAT ONE Administration Aspirin Confirm 06/15/22 11:19 Aspirin 81 Mg Tab.Chew Administered 06/15/22 11:20 Dose 324 mg .ROUTE .STK-MED ONE Nitroglycerin 0.4 mg 06/15/22 10:56 06/15/22 11:14 Nitroglycerin 0.4 Mg (Ed) 0.4 Mg Tab.Subl SL 06/15/22 10:57 0.4 mg STAT ONE Administration Nitroglycerin Confirm 06/15/22 11:20 Nitroglycerin 0.4 Mg (Ed) 0.4 Mg Tab.Subl Administered 06/15/22 11:21 Dose 0.4 mg SL .STK-MED ONE Lab/Rad Data: Laboratory Result Diagrams 06/15/22 11:30 06/15/22 11:30 Laboratory Results 06/15/22 06/15/22 06/15/22 Range/Units 13:27 11:30 11:30 WBC (4.0-10.5) x10^3/uL RBC (4.1-5.4) x10^6/uL Hgb (12.0-16.0) g/dL Hct (35-47) % MCV (78-100) fL MCH (26-32) pg MCHC (32-36) g/dL RDW (11.5-14.0) % Plt Count (150-450) x10^3/uL MPV (7.5-11.0) fL Gran % (36.0-66.0) % Immature Gran % (Auto) (0.00-0.4) % Nucleat RBC Rel Count (0.00-0.1) % Eos # (Auto) (0-0.5) x10^3/uL Immature Gran # (Auto) (0.00-0.03) x10^3u/L Absolute Lymphs (auto) (1.0-4.6) x10^3/uL Absolute Monos (auto) (0.0-1.3) x10^3/uL Absolute Nucleated RBC (0.00-0.01) x10^3u/L Lymphocytes % (24.0-44.0) % Monocytes % (0.0-12.0) % Eosinophils % (0.00-5.0) % Basophils % (0.0-0.4) % Absolute Granulocytes (1.4-6.9) x10^3/uL Basophils # (0-0.4) x10^3/uL PT (9.4-12.5) SECONDS INR (0.8-3.0) APTT (25.1-36.5) SECONDS D-Dimer (0.0-0.50) mg/L Sodium (137-145) mmol/L Potassium (3.5-5.1) mmol/L Chloride (98-107) mmol/L Carbon Dioxide (22-30) mmol/L Anion Gap (5-15) MEQ/L BUN (7-17) mg/dL Creatinine (0.52-1.04) mg/dL Estimated GFR ML/MIN Glucose (74-106) mg/dL Calcium (8.4-10.2) mg/dL Total Bilirubin (0.2-1.3) mg/dL AST (14-36) U/L ALT (0-35) U/L Alkaline Phosphatase (38-126) U/L Troponin I < 0.012 (0.000-0.034) ng/mL NT-Pro-B Natriuret Pep (<300) pg/mL Serum Total Protein (6.3-8.2) g/dL Albumin (3.5-5.0) g/dL Thyroxine (T4) 10.1 (5.53-10.96) ug/dL TSH 3rd Generation 0.793 (0.47-4.68) mIU/L 06/15/22 06/15/22 06/15/22 Range/Units 11:30 11:30 11:30 WBC (4.0-10.5) x10^3/uL RBC (4.1-5.4) x10^6/uL Hgb (12.0-16.0) g/dL Hct (35-47) % MCV (78-100) fL MCH (26-32) pg MCHC (32-36) g/dL RDW (11.5-14.0) % Plt Count (150-450) x10^3/uL MPV (7.5-11.0) fL Gran % (36.0-66.0) % Immature Gran % (Auto) (0.00-0.4) % Nucleat RBC Rel Count (0.00-0.1) % Eos # (Auto) (0-0.5) x10^3/uL Immature Gran # (Auto) (0.00-0.03) x10^3u/L Absolute Lymphs (auto) (1.0-4.6) x10^3/uL Absolute Monos (auto) (0.0-1.3) x10^3/uL Absolute Nucleated RBC (0.00-0.01) x10^3u/L Lymphocytes % (24.0-44.0) % Monocytes % (0.0-12.0) % Eosinophils % (0.00-5.0) % Basophils % (0.0-0.4) % Absolute Granulocytes (1.4-6.9) x10^3/uL Basophils # (0-0.4) x10^3/uL PT (9.4-12.5) SECONDS INR (0.8-3.0) APTT (25.1-36.5) SECONDS D-Dimer 0.29 (0.0-0.50) mg/L Sodium (137-145) mmol/L Potassium (3.5-5.1) mmol/L Chloride (98-107) mmol/L Carbon Dioxide (22-30) mmol/L Anion Gap (5-15) MEQ/L BUN (7-17) mg/dL Creatinine (0.52-1.04) mg/dL Estimated GFR ML/MIN Glucose (74-106) mg/dL Calcium (8.4-10.2) mg/dL Total Bilirubin (0.2-1.3) mg/dL AST (14-36) U/L ALT (0-35) U/L Alkaline Phosphatase (38-126) U/L Troponin I < 0.012 (0.000-0.034) ng/mL NT-Pro-B Natriuret Pep 23.1 (<300) pg/mL Serum Total Protein (6.3-8.2) g/dL Albumin (3.5-5.0) g/dL Thyroxine (T4) (5.53-10.96) ug/dL TSH 3rd Generation (0.47-4.68) mIU/L 06/15/22 06/15/22 06/15/22 Range/Units 11:30 11:30 11:30 WBC 9.7 (4.0-10.5) x10^3/uL RBC 5.04 (4.1-5.4) x10^6/uL Hgb 15.2 (12.0-16.0) g/dL Hct 45.7 (35-47) % MCV 90.7 (78-100) fL MCH 30.2 (26-32) pg MCHC 33.3 (32-36) g/dL RDW 14.3 H (11.5-14.0) % Plt Count 337 (150-450) x10^3/uL MPV 11.1 H (7.5-11.0) fL Gran % 72.7 H (36.0-66.0) % Immature Gran % (Auto) 0.3 (0.00-0.4) % Nucleat RBC Rel Count 0.0 (0.00-0.1) % Eos # (Auto) 0.15 (0-0.5) x10^3/uL Immature Gran # (Auto) 0.03 (0.00-0.03) x10^3u/L Absolute Lymphs (auto) 2.07 (1.0-4.6) x10^3/uL Absolute Monos (auto) 0.35 (0.0-1.3) x10^3/uL Absolute Nucleated RBC 0.00 (0.00-0.01) x10^3u/L Lymphocytes % 21.3 L (24.0-44.0) % Monocytes % 3.6 (0.0-12.0) % Eosinophils % 1.5 (0.00-5.0) % Basophils % 0.6 (0.0-0.4) % Absolute Granulocytes 7.04 H (1.4-6.9) x10^3/uL Basophils # 0.06 (0-0.4) x10^3/uL PT 9.8 (9.4-12.5) SECONDS INR 0.89 (0.8-3.0) APTT 26.8 (25.1-36.5) SECONDS D-Dimer (0.0-0.50) mg/L Sodium 142 (137-145) mmol/L Potassium 4.2 (3.5-5.1) mmol/L Chloride 107 (98-107) mmol/L Carbon Dioxide 25 (22-30) mmol/L Anion Gap 13.9 (5-15) MEQ/L BUN 9 (7-17) mg/dL Creatinine 0.56 (0.52-1.04) mg/dL Estimated GFR > 60.0 ML/MIN Glucose 91 (74-106) mg/dL Calcium 10.0 (8.4-10.2) mg/dL Total Bilirubin 0.90 (0.2-1.3) mg/dL AST 28 (14-36) U/L ALT 31 (0-35) U/L Alkaline Phosphatase 132 H (38-126) U/L Troponin I (0.000-0.034) ng/mL NT-Pro-B Natriuret Pep (<300) pg/mL Serum Total Protein 8.0 (6.3-8.2) g/dL Albumin 4.8 (3.5-5.0) g/dL Thyroxine (T4) (5.53-10.96) ug/dL TSH 3rd Generation (0.47-4.68) mIU/L - Progress Progress: improved Progress Note: 06/15/22 14:57 Nursing note and vital signs reviewed No food or housing insecurities noted Pt is a full code 324mg PO ASA given SL NTG x1 w normalization of blood pressure and resolution of chest pain All labs results reviewed and shared w pt CTA of chest neg Heart score 3 06/15/22 15:20 06/15/22 16:13 Counseled pt/family regarding: lab results, diagnosis, need for follow-up, rad results - Departure Departure Disposition: Home Clinical Impression: Hypertensive urgency, Chest pain Condition: Stable Critical Care Time: No Referrals: MATILDE POWERS [Primary Care Provider] - Follow up/PCP as directed Instructions: High Blood Pressure (DC), Chest Pain (DC) Additional Instructions: Start Norvasc once daily Continue with other meds Return to ER for increasing pain or shortness of breath Prescriptions: Amlodipine Besylate 5 mg [Norvasc 5 mg] 5 mg PO DAILY #30 tablet
[2022-06-15] MEDS ORDERED: BABY ASPIRIN 81 MG CHEW ONE (11:19)
--- NOTE | 2022-06-15 11:31 | XRAY ---
Indication: Chest pain. Comparison: April 26, 2013 Portable chest demonstrates new subtle patchy left base hazy airspace disease. Remaining heart and lungs unremarkable. Bony thorax intact.
[2022-06-15 11:44] LABS: Absolute Neutrophil Ct (ANC) 7.04 x10^3/uL (1.4-6.9); BASOPHIL % 0.6 % (0.0-0.4); Basophil (Absolute #) 0.06 x10^3/uL (0-0.4); Eosinophil % 1.5 % (0.00-5.0); Eosinophil (Absolute #) 0.15 x10^3/uL (0-0.5); Hematocrit 45.7 % (35-47); Hemoglobin 15.2 g/dL (12.0-16.0); IMMATURE GRAN # 0.03 x10^3u/L (0.00-0.03); IMMATURE GRAN % 0.3 % (0.00-0.4); Lymphocyte (Absolute #) 2.07 x10^3/uL (1.0-4.6); Lymphocytes % 21.3 % (24.0-44.0); Mean Cell Volume 90.7 fL (78-100); Mean Corpuscular Hemoglobin 30.2 pg (26-32); Mean Corpuscular Hgb Concent. 33.3 g/dL (32-36); Mean Platelet Volume 11.1 fL (7.5-11.0); Monocyte (Absolute #) 0.35 x10^3/uL (0.0-1.3); Monocytes % 3.6 % (0.0-12.0); Neutrophil % 72.7 % (36.0-66.0); Platelet Count 337 x10^3/uL (150-450); Red Blood Count 5.04 x10^6/uL (4.1-5.4); Red Cell Distribution Width 14.3 % (11.5-14.0); White Blood Count 9.7 x10^3/uL (4.0-10.5)
[2022-06-15 11:52] LABS: ALBUMIN 4.8 g/dL (3.5-5.0); ALKALINE PHOSPHATASE 132 U/L (38-126); ANION GAP 13.9 MEQ/L (5-15); BLOOD UREA NITROGEN 9 mg/dL (7-17); CHLORIDE 107 mmol/L (98-107); Carbon Dioxide 25 mmol/L (22-30); Creatinine 1 0.56 mg/dL (0.52-1.04); EST GLOMERULAR FILTRATION RATE > 60.0 ML/MIN; Glucose 91 mg/dL (74-106); Potassium 4.2 mmol/L (3.5-5.1); SGOT/AST 28 U/L (14-36); SGPT/ALT 31 U/L (0-35); SODIUM 142 mmol/L (137-145)
[2022-06-15 11:55] LABS: INR 0.89 (0.8-3.0); PROTIME 9.8 SECONDS (9.4-12.5); PTT 26.8 SECONDS (25.1-36.5)
--- NOTE | 2022-06-15 15:13 | XRAY ---
Indication: Aortic dissection. Conventional contrast enhanced CTA chest performed using 100 cc [id number] contrast. 2-D sagittal and coronal reformatted images obtained. Additional 3-D reformatted images again using a separate workstation. Comparison: None Thoracic aorta demonstrates very minimal scattered arteriosclerotic calcifications without aneurysm/dissection. Normal patent branching right brachycephalic, left common carotid, and left subclavian arteries. Heart not enlarged. No pathologic mediastinal/hilar lymphadenopathy. Small hiatal hernia. Visualized lungs demonstrates mild diffuse pulmonary emphysema and mild bilateral dependent atelectasis. Lingula demonstrates minimal subsegmental atelectasis/scarring. No suspicious pulmonary mass, infiltrate, effusion, or pneumothorax. Bony thorax intact with mild degenerative changes throughout the spine. Limited upper abdomen demonstrates fatty liver. Impression: 1. Very minimal arteriosclerotic aorta. Otherwise normal CTA chest with contrast exam. 2. Chronic findings including pulmonary emphysema, lingula atelectasis/scarring, chronic bony findings, and fatty liver.
[2022-06-15 15:26] VITALS: BP 143/78; PULSE 65
[2022-06-15 16:13] VITALS: O2SAT 98
== END 2022-06-15 15:33 | disposition home or self-care (01) ==
LOC: ED 10:43
DX: I16.0 Hypertensive urgency (principal); I10 Essential (primary) hypertension; R07.9 Chest pain, unspecified; R06.00 Dyspnea, unspecified; R11.0 Nausea; E78.5 Hyperlipidemia, unspecified; Z79.899 Other long term (current) drug therapy
CPT/HCPCS: 36000; 36415; 71045; 71260; 80053; 83880; 84436; 84443; 84484; 85025; 85379; 85610; 85730; 93005; 99284; A9270-GY

== ENCOUNTER 2023-10-22 07:23 | Observation (INO) | payer OTHER ==
[2023-10-22] MEDS ORDERED: Sodium Chloride 0.9% 1000 ML 1,000 ML ONE (07:58)
[2023-10-22 07:59] LABS: Absolute Neutrophil Ct (ANC) 9.19 x10^3/uL (1.56-6.13); BASOPHIL % 0.5 % (0.1-1.2); Basophil (Absolute #) 0.06 x10^3/uL (0.01-0.08); Eosinophil % 0.8 % (0.7-5.8); Eosinophil (Absolute #) 0.09 x10^3/uL (0.04-0.36); Hematocrit 45.7 % (34.1-44.9); Hemoglobin 15.7 g/dL (11.2-15.7); IMMATURE GRAN # 0.04 x10^3u/L (0.001-0.031); IMMATURE GRAN % 0.4 % (0.001-0.429); Lymphocyte (Absolute #) 1.32 x10^3/uL (1.18-3.74); Lymphocytes % 11.8 % (19.3-51.7); Mean Cell Volume 92.3 fL (79.4-94.8); Mean Corpuscular Hemoglobin 31.7 pg (25.6-32.2); Mean Corpuscular Hgb Concent. 34.4 g/dL (32.2-35.5); Mean Platelet Volume 10.9 fL (9.4-12.3); Monocyte (Absolute #) 0.51 x10^3/uL (0.24-0.86); Monocytes % 4.5 % (4.7-12.5); Platelet Count 275 x10^3/uL (182-369); Red Blood Count 4.95 x10^6/uL (3.93-5.22); Red Cell Distribution Width 14.1 % (11.7-14.4); White Blood Count 11.2 x10^3/uL (3.98-10.04)
[2023-10-22] MEDS: Sodium Chloride 0.9% 1000 ML 1,000 ML IV SCH ×2 (07:59→18:11)
[2023-10-22 08:11] LABS: ALBUMIN 4.5 g/dL (3.5-5.0); ANION GAP 14.9 MEQ/L (5-15); Calcium 9.9 mg/dL (8.4-10.2); Creatinine 1 0.78 mg/dL (0.52-1.04); EST GLOMERULAR FILTRATION RATE 89.6 ML/MIN; Potassium 4.2 mmol/L (3.5-5.1); Total Protein 7.4 g/dL (6.3-8.2)
--- NOTE | 2023-10-22 08:12 | ERPHSYRPT ---
- History of Present Illness Time Seen by Provider: 10/22/23 07:30 Source: patient Exam Limitations: no limitations Patient Subjective Stated Complaint: Pt c/o of LUQ pain and hard to take a deep breath, for the past 3 days, pt has had this before and it was diverticulitis Triage Nursing Assessment: Pt was brought to the ER by her boyfriend, marek luna, rates pain as 7/10, pulses normal, no edema, pain does not radiate, pain is on the LUQ on the later side, nausea, denies vomiting, unable to take a deep breath, denies blood in stool Physician History: Patient is a 53-year-old female presents emergency department for evaluation of left upper quadrant pain x 3 days. The pain is localized no radiation. Pain patient has had diverticulitis in the past. Patient states her pain is similar. Pain rated 7 out of 10. However patient took Tylenol prior to arrival. Patient declined additional pain medication at this time. No trauma. No fever. No nausea vomiting or diarrhea. Symptoms are progressive. Symptoms are moderate in intensity. Pain worse with deep breath. Pain improves at rest. Patient otherwise feels well. She voices no other complaints or concerns at this time. Portions of this note were created with voice recognition technology. There may be grammatical, spelling, punctuation or sound alike errors Timing/Duration: day(s) (3 days) Severity: moderate Modifying Factors: Improves With: other (Deep breath, palpation) Associated Symptoms: denies symptoms Allergies/Adverse Reactions: codeine [Codeine] Allergy (Intermediate, Verified 10/22/23 07:38) itch morphine Allergy (Verified 10/22/23 07:38) Home Medications: Lisinopril 10 mg [Zestril 10 MG] 20 mg PO DAILY 11/21/17 [History] PANTOPRAZOLE 40 mg Tablet [Protonix 40MG Tablet] 40 mg PO QAM 06/15/22 [History] Atorvastatin Calcium 40 mg PO UD 10/22/23 [History] Empagliflozin [Jardiance] 25 mg PO DAILY 10/22/23 [History] Gabapentin [Neurontin ] 300 mg PO TID 10/22/23 [History] Semaglutide [Ozempic] 0.25 mg SQ WEEKLY 10/22/23 [History] Hx Tetanus, Diphtheria Vaccination/Date Given: Yes Hx Influenza Vaccination/Date Given: No Hx Pneumococcal Vaccination/Date Given: No Travel Risk - International Travel Have you traveled outside of the country in past 3 weeks: No - Emerging Infectious Disease Are you exhibiting symptoms associated with any current EIDs: Yes Symptoms: Abdominal Pain - Review of Systems Constitutional: No Symptoms, No Fever, No Chills Eyes: No Symptoms Ears, Nose, & Throat: No Symptoms Respiratory: No Symptoms, No Cough, No Dyspnea Cardiac: No Symptoms, No Chest Pain, No Edema, No Syncope Abdominal/Gastrointestinal: No Symptoms, No Abdominal Pain, No Nausea, No Vomiting, No Diarrhea Genitourinary Symptoms: No Symptoms, No Dysuria Musculoskeletal: No Symptoms, No Back Pain, No Neck Pain Skin: No Symptoms, No Rash Neurological: No Symptoms, No Dizziness, No Focal Weakness, No Sensory Changes Psychological: No Symptoms Endocrine: No Symptoms Hematologic/Lymphatic: No Symptoms Immunological/Allergic: No Symptoms All Other Systems: Reviewed and Negative - Past Medical History Pertinent Past Medical History: Yes Neurological History: No Pertinent History ENT History: No Pertinent History Cardiac History: Hypertension Respiratory History: Sleep Apnea Endocrine Medical History: No Pertinent History Musculoskeletal History: Osteoarthritis, Osteoporosis GI Medical History: No Pertinent History, Diverticulosis History: No Pertinent History Psycho-Social History: No Pertinent History Female Reproductive Disorders: No Pertinent History Other Medical History: R KATJA, L TKA. R FEMUR FRACTURE, R TIBIAL FX. - Past Surgical History Past Surgical History: Yes Neuro Surgical History: No Pertinent History Cardiac: No Pertinent History Respiratory: No Pertinent History Gastrointestinal: No Pertinent History Genitourinary: No Pertinent History Musculoskeletal: Orthopedic Surgery Female Surgical History: Tubal Ligation Other Surgical History: hip,kneeboth sides of rt forearm - Social History Smoking Status: Former smoker How long have you smoked: 30 yrs Exposure to second hand smoke: No Drug Use: none Patient Lives Alone: No - Social Determinants of Health Will the patient participate in the screening: Yes Do you worry about a steady place to live?: No Do you have any problems with any of the following?: No known problems In the past 12 months,have you had to go without utilities?: No Transportation Issues: No Has anyone in your support network made you feel unsafe?: No Have you or anyone in your house had to go without enough: No - Nursing Vital Signs Nursing Vital Signs: Initial Vital Signs Temperature 97.6 F 10/22/23 07:26 Pulse Rate 67 10/22/23 07:26 Respiratory Rate 17 10/22/23 07:26 Blood Pressure 149/74 10/22/23 07:26 O2 Sat by Pulse Oximetry 98 10/22/23 07:26 Pain Scale Pain Intensity 7 - Physical Exam General Appearance: no apparent distress, alert Eye Exam: PERRL/EOMI, eyes nml inspection Ears, Nose, Throat Exam: normal ENT inspection, moist mucous membranes Neck Exam: normal inspection, non-tender, supple, full range of motion Respiratory Exam: normal breath sounds, lungs clear, airway intact, No respiratory distress Cardiovascular Exam: regular rate/rhythm, normal heart sounds, normal peripheral pulses Gastrointestinal/Abdomen Exam: soft, normal bowel sounds, tenderness (Tenderness to palpation left upper quadrant. ), No mass Back Exam: normal inspection, normal range of motion, No CVA tenderness, No vertebral tenderness Extremity Exam: normal inspection, normal range of motion, pelvis stable Neurologic Exam: alert, oriented x 3, cooperative, normal mood/affect, nml station & gait, sensation nml, No motor deficits Skin Exam: normal color, warm, dry, No rash Lymphatic Exam: No adenopathy SpO2 Interpretation: normal SpO2: 97 O2 Delivery: Room Air - Course Nursing assessment & vital signs reviewed: Yes EKG Interpreted by Me: RATE (67), Sinus Rhythm, Left [place] Deviation, NORMAL INTERVALS - CT Exams Abdomen/Pelvis CT Interpretation: Tele-radiologist Report (Colonic diverticulosis, diverticulitis of descending colon left renal cyst bilateral L5 spondylosis with L1 listhesis) Chest CT Interpretation: Tele-radiologist Report (CTA chest negative for PE.) Ordered Tests: Active Orders 24 hr Category Date Time Status Logistics Team Lead STAT Care 10/22/23 07:43 Active EKG-ER Only STAT Care 10/22/23 07:42 Active IV Insertion STAT Care 10/22/23 07:42 Active Pulse Oximetry (ED) STAT Care 10/22/23 07:42 Active ABDOMEN AND PELVIS W CONTRAST [CT] Stat Exams 10/22/23 08:56 Completed CHEST WITH CONTRAST [CT] Stat Exams 10/22/23 08:55 Completed CBC W DIFF Stat Lab 10/22/23 07:48 Completed CMP Stat Lab 10/22/23 07:48 Completed D-DIMER QUANTITATIVE Stat Lab 10/22/23 07:48 Completed LIPASE Stat Lab 10/22/23 07:48 Completed TROPONIN Q4H Lab 10/22/23 07:48 Completed TROPONIN Q4H Lab 10/22/23 11:45 Ordered TROPONIN Q4H Lab 10/22/23 15:45 Ordered UA W/RFX UR CULTURE Stat Lab 10/22/23 08:08 Completed Transfer Order Routine Transfer 10/22/23 Ordered Medication Summary Generic Name Dose Route Start Last Admin Trade Name Ragini PRN Reason Stop Dose Admin Sodium Chloride 1,000 mls @ 100 mls/hr 10/22/23 07:45 10/22/23 07:59 Sodium Chloride 0.9% 1000 Ml IV 11/21/23 07:44 100 mls/hr .Q10H GILLIAN Administration Levofloxacin/Dextrose 500 mg in 100 mls @ 100 mls/hr 10/22/23 11:22 Levofloxacin 500mg/100ml D5w IV 10/22/23 12:21 STAT STA Metronidazole 500 mg in 100 mls @ 200 mls/hr 10/22/23 11:22 10/22/23 11:30 Flagyl 500 Mg Ivpb IV 10/22/23 11:51 200 mls/hr STAT STA 200 mls/hr Administration Discontinued Medications Generic Name Dose Route Start Last Admin Trade Name Ragini PRN Reason Stop Dose Admin Metronidazole Confirm 10/22/23 11:27 Flagyl 500 Mg Ivpb Administered 10/22/23 11:28 Dose 500 mg in 100 mls @ ud IV .STK-MED ONE Ketorolac Tromethamine 30 mg 10/22/23 11:30 Ketorolac Tromethamine 30 Mg/Ml Inj IV 10/22/23 11:31 STAT ONE Ondansetron HCl 4 mg 10/22/23 09:50 10/22/23 09:57 Ondansetron Hcl 4 Mg/2 Ml Vial IV 10/22/23 09:51 4 mg STAT ONE Administration Ondansetron HCl Confirm 10/22/23 09:56 Ondansetron Hcl 4 Mg/2 Ml Vial Administered 10/22/23 09:57 Dose 4 mg .ROUTE .STK-MED ONE Lab/Rad Data: Laboratory Result Diagrams 10/22/23 07:48 10/22/23 07:48 Laboratory Results 10/22/23 10/22/23 10/22/23 Range/Units 08:08 07:48 07:48 WBC (3.98-10.04) x10^3/uL RBC (3.93-5.22) x10^6/uL Hgb (11.2-15.7) g/dL Hct (34.1-44.9) % MCV (79.4-94.8) fL MCH (25.6-32.2) pg MCHC (32.2-35.5) g/dL RDW (11.7-14.4) % Plt Count (182-369) x10^3/uL MPV (9.4-12.3) fL Gran % (34.0-71.1) % Immature Gran % (Auto) (0.001-0.429) % Nucleat RBC Rel Count (0.00-0.2) % Eos # (Auto) (0.04-0.36) x10^3/uL Immature Gran # (Auto) (0.001-0.031) x10^3u/L Absolute Lymphs (auto) (1.18-3.74) x10^3/uL Absolute Monos (auto) (0.24-0.86) x10^3/uL Absolute Nucleated RBC (0.00-0.012) x10^3u/L Lymphocytes % (19.3-51.7) % Monocytes % (4.7-12.5) % Eosinophils % (0.7-5.8) % Basophils % (0.1-1.2) % Absolute Granulocytes (1.56-6.13) x10^3/uL Basophils # (0.01-0.08) x10^3/uL D-Dimer 0.80 H* (0.0-0.50) mg/L Sodium (135-145) mmol/L Potassium (3.5-5.1) mmol/L Chloride (98-107) mmol/L Carbon Dioxide (22-30) mmol/L Anion Gap (5-15) MEQ/L BUN (7-17) mg/dL Creatinine (0.52-1.04) mg/dL Estimated GFR ML/MIN Glucose (74-106) mg/dL Calcium (8.4-10.2) mg/dL Total Bilirubin (0.2-1.3) mg/dL AST (14-36) U/L ALT (0-35) U/L Alkaline Phosphatase (38-126) U/L Troponin I < 0.012 (0.000-0.033) ng/mL Serum Total Protein (6.3-8.2) g/dL Albumin (3.5-5.0) g/dL Lipase (23-300) U/L Urine Color Yellow (Yellow) Urine Appearance Clear (Clear) Urine pH 7.0 (4.6-8.0) Ur Specific [place] 1.010 (1.005-1.030) Urine Protein Negative (Negative) Urine Glucose (UA) 500 A (Negative) mg/dL Urine Ketones Negative (Negative) Urine Blood Negative (Negative) Urine Nitrite Negative (Negative) Urine Bilirubin Negative (Negative) Urine Urobilinogen 0.2 (0.2) mg/dL Ur Leukocyte Esterase Negative (Negative) U Hyaline Cast (Auto) NONE SEEN (0-2) /LPF Urine Microscopic RBC 0-2 (0-5) /HPF Urine Microscopic WBC 0-2 (0-5) /HPF Ur Epithelial Cells None Seen (None Seen) /HPF Urine Bacteria None Seen (None Seen) /HPF Urine Culture Reflexed NO (NO) 10/22/23 10/22/23 Range/Units 07:48 07:48 WBC 11.2 H (3.98-10.04) x10^3/uL RBC 4.95 (3.93-5.22) x10^6/uL Hgb 15.7 (11.2-15.7) g/dL Hct 45.7 H (34.1-44.9) % MCV 92.3 (79.4-94.8) fL MCH 31.7 (25.6-32.2) pg MCHC 34.4 (32.2-35.5) g/dL RDW 14.1 (11.7-14.4) % Plt Count 275 (182-369) x10^3/uL MPV 10.9 (9.4-12.3) fL Gran % 82.0 H (34.0-71.1) % Immature Gran % (Auto) 0.4 (0.001-0.429) % Nucleat RBC Rel Count 0.0 (0.00-0.2) % Eos # (Auto) 0.09 (0.04-0.36) x10^3/uL Immature Gran # (Auto) 0.04 H (0.001-0.031) x10^3u/L Absolute Lymphs (auto) 1.32 (1.18-3.74) x10^3/uL Absolute Monos (auto) 0.51 (0.24-0.86) x10^3/uL Absolute Nucleated RBC 0.00 (0.00-0.012) x10^3u/L Lymphocytes % 11.8 L (19.3-51.7) % Monocytes % 4.5 L (4.7-12.5) % Eosinophils % 0.8 (0.7-5.8) % Basophils % 0.5 (0.1-1.2) % Absolute Granulocytes 9.19 H (1.56-6.13) x10^3/uL Basophils # 0.06 (0.01-0.08) x10^3/uL D-Dimer (0.0-0.50) mg/L Sodium 143 (135-145) mmol/L Potassium 4.2 (3.5-5.1) mmol/L Chloride 108 H (98-107) mmol/L Carbon Dioxide 25 (22-30) mmol/L Anion Gap 14.9 (5-15) MEQ/L BUN 13 (7-17) mg/dL Creatinine 0.78 (0.52-1.04) mg/dL Estimated GFR 89.6 ML/MIN Glucose 103 (74-106) mg/dL Calcium 9.9 (8.4-10.2) mg/dL Total Bilirubin 1.00 (0.2-1.3) mg/dL AST 23 (14-36) U/L ALT 24 (0-35) U/L Alkaline Phosphatase 115 (38-126) U/L Troponin I (0.000-0.033) ng/mL Serum Total Protein 7.4 (6.3-8.2) g/dL Albumin 4.5 (3.5-5.0) g/dL Lipase 44 (23-300) U/L Urine Color (Yellow) Urine Appearance (Clear) Urine pH (4.6-8.0) Ur Specific [place] (1.005-1.030) Urine Protein (Negative) Urine Glucose (UA) (Negative) mg/dL Urine Ketones (Negative) Urine Blood (Negative) Urine Nitrite (Negative) Urine Bilirubin (Negative) Urine Urobilinogen (0.2) mg/dL Ur Leukocyte Esterase (Negative) U Hyaline Cast (Auto) (0-2) /LPF Urine Microscopic RBC (0-5) /HPF Urine Microscopic WBC (0-5) /HPF Ur Epithelial Cells (None Seen) /HPF Urine Bacteria (None Seen) /HPF Urine Culture Reflexed (NO) - Progress Progress: improved Progress Note: Case discussed with who accepts admission to observation 11:37 AM. Patient is a 53-year-old female presents emergency department for evaluation of left-sided abdominal pain. Physical exam reveals tenderness along the left upper and lower flank area. D-dimer positive. CTA chest negative for PE. CT abdomen pelvis significant for diverticulitis. Patient received Levaquin and Flagyl. IV pain medication administered as well. We will admit patient for further evaluation and treatment. Vital stable. Patient agrees to admission [facility] for further evaluation and treatment. Portions of this note were created with voice recognition technology. There may be grammatical, spelling, punctuation or sound alike errors Complexity problem addressed is moderate acute complicated. No critical care time. Complex of data reviewed and analyzed is extensive. Test ordered test reviewed results analyzed and correlated clinically with history and physical exam. Risk of complication and or risk of morbidity/mortality patient management is high. Patient requires hospitalization for further evaluation and treatment. Vital stable. Time spent admit patient approximately 15 minutes. Plan of care established for shared decision making. No social determinants of health present impede follow-up. Portions of this note were created with voice recognition technology. There may be grammatical, spelling, punctuation or sound alike errors 10/22/23 11:37 Will see patient in: hospital (observation) Counseled pt/family regarding: lab results, diagnosis, need for follow-up, rad results - Departure Departure Disposition: Observation Clinical Impression: Diverticulosis, Diverticulitis, Renal cyst, left, Bilateral L5 spondylosis, Grade 1 anterolisthesis Condition: Stable Critical Care Time: No Referrals: MATILDE POWERS [Primary Care Provider] - Follow up/PCP as directed
[2023-10-22 08:19] LABS: ADD URINE CULTURE? NO (NO); Appearance Clear (Clear); Bacteria None Seen /HPF (None Seen); Bilirubin Negative (Negative); Blood Negative (Negative); Epithelial Cells None Seen /HPF (None Seen); Glucose, Urine 500 mg/dL (Negative); Hyaline Casts NONE SEEN /LPF (0-2); Ketones Negative (Negative); Leukocyte Esterase Negative (Negative); Nitrite Negative (Negative); Protein,Urine Dip Negative (Negative); RBC 0-2 /HPF (0-5); Urobilinogen 0.2 mg/dL (0.2); WBC 0-2 /HPF (0-5)
[2023-10-22] MEDS ORDERED: Zofran 4 MG/2 ML VIAL ONE (09:56)
[2023-10-22] MEDS: Zofran 4 MG/2 ML VIAL IV ONE (09:57)
--- NOTE | 2023-10-22 10:22 | XRAY ---
Indication: Abdominal pain 3 days. Elevated d-dimer. Multiple contiguous images obtained through the chest using 80 cc Isovue 370 contrast and PE protocol. Comparison: CTA chest June 15, 2022. Good opacification of the pulmonary arteries to include the lobar and segmental branches. No pulmonary embolus. Heart not enlarged. Aorta again minimally arteriosclerotic without aneurysm/dissection. No pathologic mediastinal/hilar lymphadenopathy. Stable small hiatal hernia. Lungs again demonstrates mild pulmonary emphysema and bilateral mid to lower lung subsegmental atelectasis/scarring. No new pulmonary mass/nodule, infiltrate, effusion, or pneumothorax. Bony thorax intact again with mild degenerative changes throughout spine. CT abdomen/pelvis report separately. Impression: 1. Negative pulmonary embolus. No acute cardiopulmonary abnormalities. 2. Again chronic findings including pulmonary emphysema, bilateral subsegmental atelectasis/scarring, arteriosclerotic disease, hiatal hernia, and multilevel degenerative spondylosis.
--- NOTE | 2023-10-22 10:26 | XRAY ---
Indication: Abdomen pain 3 days. Multiple contiguous axial images obtained through the abdomen and pelvis using 80 cc Isovue 370 contrast. Comparison: October 14, 2017 CT chest reported separately. Noncontrasted stomach and bowel loops appear nonobstructed. Again markedly diffuse scattered colonic diverticulosis. Proximal descending colon demonstrates new mild bowel wall thickening with pericolonic stranding favoring diverticulitis. Tiny free fluid but no walled off fluid collection or free air. Both kidneys enhance and excrete with stable small left renal cyst. Remaining liver, gallbladder, pancreas, spleen, adrenal glands, kidneys, ureters, and bladder are unremarkable. Again mild scattered aortoiliac calcifications. No AAA or pathologic retroperitoneal lymphadenopathy. Osseous structures intact again with mild degenerative changes throughout spine, bilateral L5 spondylosis with grade 1 listhesis, and right hip arthroplasty. Impression: 1. Again diffuse colonic diverticulosis. New mild diverticulitis proximal descending colon with tiny free fluid. 2. Chronic findings including left renal cyst, arteriosclerotic disease, and chronic bony findings.
[2023-10-22] MEDS ORDERED: FLAGYL 500 MG IVPB 500 MG/100 ML BAG IV ONE (11:27)
[2023-10-22] MEDS: FLAGYL 500 MG IVPB 500 MG/100 ML BAG IV STA (11:30)
[2023-10-22] MEDS ORDERED: TORAdol 30 mg Injection ONE (11:56)
[2023-10-22] MEDS ORDERED: Levofloxacin 500MG/100ML D5W 500 MG/100 ML BAG IV ONE (11:57)
[2023-10-22] MEDS: Levofloxacin 500MG/100ML D5W 500 MG/100 ML BAG IV STA (11:58)
[2023-10-22] MEDS: TORAdol 30 mg Injection IV ONE (11:59)
--- NOTE | 2023-10-22 12:39 | PCM.HP ---
<SONJA LIU - Last Filed: 10/22/23 12:57> History of Present Illness - Chief Complaint Chief Complaint: Diverticulitis Date: 10/22/23 History of Present Illness: is a 53 year old female with a pmhx of HTN, DM, and MADAI who presented to ED 10/22/23 with complaints of a three day history of left upper quadrant pain . Patient states she does have a history of diverticulosis/diverticulitis. She states she had a strawberry shake and symptoms started shortly after. She has had some nausea, no vomiting, no fevers, blood in stool, or change in bowel habits. Upon arrival vitals stable. EKG NS. CT with diffuse colonic divertivulosis and mild diverticulitis of the proximal descending colon with tiny free fluid. CT chest with no acute cardiopulmonary processes. Lab findings remarkable for mild leukocytosis with wbc at 11.2 and elevated ddimer at 0.80 (negative CT for PE). Patient given levaquin, flagyl, and IVF in ED. Plan for admission for Diverticulitis with IV zosyn. - Review of Systems Constitutional: No Symptoms Eyes: No Symptoms Ears, Nose, & Throat: No Symptoms Respiratory: No Symptoms Cardiac: No Symptoms Abdominal/Gastrointestinal: Abdominal Pain (LUQ), Nausea Genitourinary Symptoms: No Symptoms Musculoskeletal: No Symptoms Skin: No Symptoms Neurological: No Symptoms Psychological: No Symptoms Endocrine: No Symptoms Hematologic/Lymphatic: No Symptoms Immunological/Allergic: No Symptoms Medications & Allergies Home Medications: Home Medication List Lisinopril 10 mg [Zestril 10 MG] 20 mg PO BID 11/21/17 [History Confirmed 10/22/23] Amlodipine Besylate 5 mg [Norvasc 5 mg] 5 mg PO DAILY #30 tablet 06/15/22 [Rx Confirmed 10/22/23] PANTOPRAZOLE 40 mg Tablet [Protonix 40MG Tablet] 40 mg PO DAILY 06/15/22 [History Confirmed 10/22/23] Atorvastatin Calcium 40 mg PO UD 10/22/23 [History Confirmed 10/22/23] Empagliflozin [Jardiance] 25 mg PO DAILY 10/22/23 [History Confirmed 10/22/23] Gabapentin [Neurontin ] 300 mg PO TID 10/22/23 [History Confirmed 10/22/23] Multivitamin [Multi-Vitamin Daily] 1 tablet PO HS 10/22/23 [History Confirmed 10/22/23] Semaglutide [Ozempic] 0.25 mg SQ WEEKLY 10/22/23 [History Confirmed 10/22/23] Allergies/Adverse Reactions: Allergies Allergy/AdvReac Type Severity Reaction Status Date / Time codeine [Codeine] Allergy Intermediate itch Verified 10/22/23 12:07 morphine Allergy Verified 10/22/23 12:07 - Past Medical History Past Medical History: Yes Neurological History: Migraines ENT History: No Pertinent History Cardiac History: High Cholesterol, Hypertension Respiratory History: Asthma, Sleep Apnea Endocrine Medical History: Diabetes Type II Musculoskelatal History: Fractures, Osteoarthritis, Osteoporosis GI Medical History: Diverticulosis, GERD History: No Pertinent History Pyscho-Social History: No Pertinent History Reproductive Disorders: No Pertinent History Comment: R KATJA, L TK, R FEMUR FRACTURE, R TIBIAL FX. Anemia after ortho surgery - Past Surgical History Past Surgical History: Yes Neuro Surgical History: No Pertinent History Cardiac History: No Pertinent History Respiratory Surgery: No Pertinent History GI Surgical History: No Pertinent History Genitourinary Surgical Hx: No Pertinent History Musculskeletal Surgical Hx: Orthopedic Surgery Female Surgical History: Tubal Ligation Other Surgical History: hip,kneeboth sides of rt forearm - Social History Smoking Status: Former smoker How long have you smoked: 20+ Exposure to second hand smoke: No Alcohol: None Drug Use: none - Social Determinants of Health Will the patient participate in the screening: Yes Do you worry about a steady place to live?: No Do you have any problems with any of the following?: No known problems In the past 12 months,have you had to go without utilities?: No Have you or anyone in your house had to go without enough: No Transportation Issues: No Has anyone in your support network made you feel unsafe?: No Does the patient want assistance with any of the above?: No - Physical Exam Vital Signs: Vital Signs - 24 hr Temp Pulse Resp BP BP Pulse Ox 10/22/23 12:30 96 10/22/23 12:19 97.4 F 70 17 135/65 99 10/22/23 11:45 97 10/22/23 11:00 129/65 97 07/09/24 10:49 115/82 10/22/23 10:30 120/69 97 10/22/23 10:03 62 21 127/71 97 10/22/23 09:00 61 17 124/83 96 10/22/23 08:30 63 18 122/75 95 10/22/23 08:00 123/83 10/22/23 07:46 97 10/22/23 07:30 76 20 149/74 95 10/22/23 07:26 97.6 F 67 17 149/74 98 General Appearance: no apparent distress Neurologic Exam: alert, oriented x 3, cooperative Eye Exam: PERRL/EOMI Ears, Nose, Throat Exam: normal ENT inspection Neck Exam: normal inspection Respiratory Exam: normal breath sounds, lungs clear Cardiovascular Exam: regular rate/rhythm, normal heart sounds Gastrointestinal/Abdomen Exam: soft, normal bowel sounds, tenderness (LUQ) Pelvic Exam: not done Rectal Exam: deferred Back Exam: normal inspection Extremity Exam: normal inspection Skin Exam: normal color Results - Labs Lab/Micro Results: Lab Results-Last 24 Hours 10/22/23 10/22/23 10/22/23 Range/Units 07:48 07:48 07:48 WBC 11.2 H (3.98-10.04) x10^3/uL RBC 4.95 (3.93-5.22) x10^6/uL Hgb 15.7 (11.2-15.7) g/dL Hct 45.7 H (34.1-44.9) % MCV 92.3 (79.4-94.8) fL MCH 31.7 (25.6-32.2) pg MCHC 34.4 (32.2-35.5) g/dL RDW 14.1 (11.7-14.4) % Plt Count 275 (182-369) x10^3/uL MPV 10.9 (9.4-12.3) fL Gran % 82.0 H (34.0-71.1) % Immature Gran % (Auto) 0.4 (0.001-0.429) % Nucleat RBC Rel Count 0.0 (0.00-0.2) % Eos # (Auto) 0.09 (0.04-0.36) x10^3/uL Immature Gran # (Auto) 0.04 H (0.001-0.031) x10^3u/L Absolute Lymphs (auto) 1.32 (1.18-3.74) x10^3/uL Absolute Monos (auto) 0.51 (0.24-0.86) x10^3/uL Absolute Nucleated RBC 0.00 (0.00-0.012) x10^3u/L Lymphocytes % 11.8 L (19.3-51.7) % Monocytes % 4.5 L (4.7-12.5) % Eosinophils % 0.8 (0.7-5.8) % Basophils % 0.5 (0.1-1.2) % Absolute Granulocytes 9.19 H (1.56-6.13) x10^3/uL Basophils # 0.06 (0.01-0.08) x10^3/uL D-Dimer (0.0-0.50) mg/L Sodium 143 (135-145) mmol/L Potassium 4.2 (3.5-5.1) mmol/L Chloride 108 H (98-107) mmol/L Carbon Dioxide 25 (22-30) mmol/L Anion Gap 14.9 (5-15) MEQ/L BUN 13 (7-17) mg/dL Creatinine 0.78 (0.52-1.04) mg/dL Estimated GFR 89.6 ML/MIN Glucose 103 (74-106) mg/dL Calcium 9.9 (8.4-10.2) mg/dL Total Bilirubin 1.00 (0.2-1.3) mg/dL AST 23 (14-36) U/L ALT 24 (0-35) U/L Alkaline Phosphatase 115 (38-126) U/L Troponin I < 0.012 (0.000-0.033) ng/mL Serum Total Protein 7.4 (6.3-8.2) g/dL Albumin 4.5 (3.5-5.0) g/dL Lipase 44 (23-300) U/L Urine Color (Yellow) Urine Appearance (Clear) Urine pH (4.6-8.0) Ur Specific [place] (1.005-1.030) Urine Protein (Negative) Urine Glucose (UA) (Negative) mg/dL Urine Ketones (Negative) Urine Blood (Negative) Urine Nitrite (Negative) Urine Bilirubin (Negative) Urine Urobilinogen (0.2) mg/dL Ur Leukocyte Esterase (Negative) U Hyaline Cast (Auto) (0-2) /LPF Urine Microscopic RBC (0-5) /HPF Urine Microscopic WBC (0-5) /HPF Ur Epithelial Cells (None Seen) /HPF Urine Bacteria (None Seen) /HPF Urine Culture Reflexed (NO) 10/22/23 10/22/23 10/22/23 Range/Units 07:48 08:08 11:48 WBC (3.98-10.04) x10^3/uL RBC (3.93-5.22) x10^6/uL Hgb (11.2-15.7) g/dL Hct (34.1-44.9) % MCV (79.4-94.8) fL MCH (25.6-32.2) pg MCHC (32.2-35.5) g/dL RDW (11.7-14.4) % Plt Count (182-369) x10^3/uL MPV (9.4-12.3) fL Gran % (34.0-71.1) % Immature Gran % (Auto) (0.001-0.429) % Nucleat RBC Rel Count (0.00-0.2) % Eos # (Auto) (0.04-0.36) x10^3/uL Immature Gran # (Auto) (0.001-0.031) x10^3u/L Absolute Lymphs (auto) (1.18-3.74) x10^3/uL Absolute Monos (auto) (0.24-0.86) x10^3/uL Absolute Nucleated RBC (0.00-0.012) x10^3u/L Lymphocytes % (19.3-51.7) % Monocytes % (4.7-12.5) % Eosinophils % (0.7-5.8) % Basophils % (0.1-1.2) % Absolute Granulocytes (1.56-6.13) x10^3/uL Basophils # (0.01-0.08) x10^3/uL D-Dimer 0.80 H* (0.0-0.50) mg/L Sodium (135-145) mmol/L Potassium (3.5-5.1) mmol/L Chloride (98-107) mmol/L Carbon Dioxide (22-30) mmol/L Anion Gap (5-15) MEQ/L BUN (7-17) mg/dL Creatinine (0.52-1.04) mg/dL Estimated GFR ML/MIN Glucose (74-106) mg/dL Calcium (8.4-10.2) mg/dL Total Bilirubin (0.2-1.3) mg/dL AST (14-36) U/L ALT (0-35) U/L Alkaline Phosphatase (38-126) U/L Troponin I < 0.012 (0.000-0.033) ng/mL Serum Total Protein (6.3-8.2) g/dL Albumin (3.5-5.0) g/dL Lipase (23-300) U/L Urine Color Yellow (Yellow) Urine Appearance Clear (Clear) Urine pH 7.0 (4.6-8.0) Ur Specific [place] 1.010 (1.005-1.030) Urine Protein Negative (Negative) Urine Glucose (UA) 500 A (Negative) mg/dL Urine Ketones Negative (Negative) Urine Blood Negative (Negative) Urine Nitrite Negative (Negative) Urine Bilirubin Negative (Negative) Urine Urobilinogen 0.2 (0.2) mg/dL Ur Leukocyte Esterase Negative (Negative) U Hyaline Cast (Auto) NONE SEEN (0-2) /LPF Urine Microscopic RBC 0-2 (0-5) /HPF Urine Microscopic WBC 0-2 (0-5) /HPF Ur Epithelial Cells None Seen (None Seen) /HPF Urine Bacteria None Seen (None Seen) /HPF Urine Culture Reflexed NO (NO) - Radiology Impressions Radiology Exams & Impressions: Radiology Procedures Category Date Time Status ABDOMEN AND PELVIS W CONTRAST [CT] Stat Exams 10/22/23 08:56 Completed CHEST WITH CONTRAST [CT] Stat Exams 10/22/23 08:55 Completed Assessment/Plan (1) Diverticulitis Current Visit: Yes Status: Acute Onset Date: ~10/11/17 Assessment & Plan: -CT with diffuse colonic divertivulosis and mild diverticulitis of the proximal descending colon with tiny free fluid -Pt requesting CLD -states she has been tolerating in ED - can trial, NPO with meds if unable to tolerate -IVF -Supportive care with pain control/anti-emetics -Levaquin/Flagyl in ED - continue with Zosyn -Once tolerating a diet can switch to PO Augmentin Code(s): K57.92 - DVTRCLI OF INTEST, PART UNSP, W/O PERF OR ABSCESS W/O BLEED (2) Leukocytosis Current Visit: Yes Status: Acute Assessment & Plan: -2/2 to diverticulitis - see plan above Code(s): D72.829 - ELEVATED WHITE BLOOD CELL COUNT, UNSPECIFIED (3) HTN (hypertension) Current Visit: Yes Status: Acute Assessment & Plan: -Stable - continue home meds lisinopril, norvasc Code(s): I10 - ESSENTIAL (PRIMARY) HYPERTENSION (4) MADAI (obstructive sleep apnea) Current Visit: Yes Status: Acute Assessment & Plan: -CPAP Code(s): G47.33 - OBSTRUCTIVE SLEEP APNEA (ADULT) (PEDIATRIC) (5) HLD (hyperlipidemia) Current Visit: Yes Status: Acute Assessment & Plan: -continue statin VTE: bilateral SCD PPI: protonix Dispo: 1-2 days Code status: full code Code(s): E78.5 - HYPERLIPIDEMIA, UNSPECIFIED (6) Type 2 diabetes mellitus Current Visit: Yes Status: Acute Assessment & Plan: -Hold Jardiance/ozempic -ADA diet when able to tolerate -SSI -A1c <SHELLIE DURANT - Last Filed: 10/22/23 21:36> History of Present Illness - Chief Complaint History of Present Illness: is a 53 year old female. - Physical Exam Vital Signs: Vital Signs - 24 hr Temp Pulse Resp BP BP Pulse Ox 10/22/23 20:28 96 10/22/23 19:49 97.1 F 63 18 114/62 94 L 10/22/23 16:04 97.5 F 62 14 138/76 98 10/22/23 12:48 96 10/22/23 12:30 96 10/22/23 12:19 97.4 F 70 17 135/65 99 10/22/23 12:04 97.6 F 70 17 135/65 99 10/22/23 11:45 97 10/22/23 11:00 129/65 97 10/22/23 10:49 115/82 10/22/23 10:30 120/69 97 10/22/23 10:03 62 21 127/71 97 10/22/23 09:00 61 17 124/83 96 10/22/23 08:30 63 18 122/75 95 10/22/23 08:00 123/83 10/22/23 07:46 97 10/22/23 07:30 76 20 149/74 95 10/22/23 07:26 97.6 F 67 17 149/74 98 Results - Labs Lab/Micro Results: Lab Results-Last 24 Hours 10/22/23 10/22/23 10/22/23 Range/Units 07:48 07:48 07:48 WBC 11.2 H (3.98-10.04) x10^3/uL RBC 4.95 (3.93-5.22) x10^6/uL Hgb 15.7 (11.2-15.7) g/dL Hct 45.7 H (34.1-44.9) % MCV 92.3 (79.4-94.8) fL MCH 31.7 (25.6-32.2) pg MCHC 34.4 (32.2-35.5) g/dL RDW 14.1 (11.7-14.4) % Plt Count 275 (182-369) x10^3/uL MPV 10.9 (9.4-12.3) fL Gran % 82.0 H (34.0-71.1) % Immature Gran % (Auto) 0.4 (0.001-0.429) % Nucleat RBC Rel Count 0.0 (0.00-0.2) % Eos # (Auto) 0.09 (0.04-0.36) x10^3/uL Immature Gran # (Auto) 0.04 H (0.001-0.031) x10^3u/L Absolute Lymphs (auto) 1.32 (1.18-3.74) x10^3/uL Absolute Monos (auto) 0.51 (0.24-0.86) x10^3/uL Absolute Nucleated RBC 0.00 (0.00-0.012) x10^3u/L Lymphocytes % 11.8 L (19.3-51.7) % Monocytes % 4.5 L (4.7-12.5) % Eosinophils % 0.8 (0.7-5.8) % Basophils % 0.5 (0.1-1.2) % Absolute Granulocytes 9.19 H (1.56-6.13) x10^3/uL Basophils # 0.06 (0.01-0.08) x10^3/uL D-Dimer (0.0-0.50) mg/L Sodium 143 (135-145) mmol/L Potassium 4.2 (3.5-5.1) mmol/L Chloride 108 H (98-107) mmol/L Carbon Dioxide 25 (22-30) mmol/L Anion Gap 14.9 (5-15) MEQ/L BUN 13 (7-17) mg/dL Creatinine 0.78 (0.52-1.04) mg/dL Estimated GFR 89.6 ML/MIN Glucose 103 (74-106) mg/dL Calcium 9.9 (8.4-10.2) mg/dL Total Bilirubin 1.00 (0.2-1.3) mg/dL AST 23 (14-36) U/L ALT 24 (0-35) U/L Alkaline Phosphatase 115 (38-126) U/L Troponin I < 0.012 (0.000-0.033) ng/mL Serum Total Protein 7.4 (6.3-8.2) g/dL Albumin 4.5 (3.5-5.0) g/dL Lipase 44 (23-300) U/L Urine Color (Yellow) Urine Appearance (Clear) Urine pH (4.6-8.0) Ur Specific [place] (1.005-1.030) Urine Protein (Negative) Urine Glucose (UA) (Negative) mg/dL Urine Ketones (Negative) Urine Blood (Negative) Urine Nitrite (Negative) Urine Bilirubin (Negative) Urine Urobilinogen (0.2) mg/dL Ur Leukocyte Esterase (Negative) U Hyaline Cast (Auto) (0-2) /LPF Urine Microscopic RBC (0-5) /HPF Urine Microscopic WBC (0-5) /HPF Ur Epithelial Cells (None Seen) /HPF Urine Bacteria (None Seen) /HPF Urine Culture Reflexed (NO) 10/22/23 10/22/23 10/22/23 Range/Units 07:48 08:08 11:48 WBC (3.98-10.04) x10^3/uL RBC (3.93-5.22) x10^6/uL Hgb (11.2-15.7) g/dL Hct (34.1-44.9) % MCV (79.4-94.8) fL MCH (25.6-32.2) pg MCHC (32.2-35.5) g/dL RDW (11.7-14.4) % Plt Count (182-369) x10^3/uL MPV (9.4-12.3) fL Gran % (34.0-71.1) % Immature Gran % (Auto) (0.001-0.429) % Nucleat RBC Rel Count (0.00-0.2) % Eos # (Auto) (0.04-0.36) x10^3/uL Immature Gran # (Auto) (0.001-0.031) x10^3u/L Absolute Lymphs (auto) (1.18-3.74) x10^3/uL Absolute Monos (auto) (0.24-0.86) x10^3/uL Absolute Nucleated RBC (0.00-0.012) x10^3u/L Lymphocytes % (19.3-51.7) % Monocytes % (4.7-12.5) % Eosinophils % (0.7-5.8) % Basophils % (0.1-1.2) % Absolute Granulocytes (1.56-6.13) x10^3/uL Basophils # (0.01-0.08) x10^3/uL D-Dimer 0.80 H* (0.0-0.50) mg/L Sodium (135-145) mmol/L Potassium (3.5-5.1) mmol/L Chloride (98-107) mmol/L Carbon Dioxide (22-30) mmol/L Anion Gap (5-15) MEQ/L BUN (7-17) mg/dL Creatinine (0.52-1.04) mg/dL Estimated GFR ML/MIN Glucose (74-106) mg/dL Calcium (8.4-10.2) mg/dL Total Bilirubin (0.2-1.3) mg/dL AST (14-36) U/L ALT (0-35) U/L Alkaline Phosphatase (38-126) U/L Troponin I < 0.012 (0.000-0.033) ng/mL Serum Total Protein (6.3-8.2) g/dL Albumin (3.5-5.0) g/dL Lipase (23-300) U/L Urine Color Yellow (Yellow) Urine Appearance Clear (Clear) Urine pH 7.0 (4.6-8.0) Ur Specific [place] 1.010 (1.005-1.030) Urine Protein Negative (Negative) Urine Glucose (UA) 500 A (Negative) mg/dL Urine Ketones Negative (Negative) Urine Blood Negative (Negative) Urine Nitrite Negative (Negative) Urine Bilirubin Negative (Negative) Urine Urobilinogen 0.2 (0.2) mg/dL Ur Leukocyte Esterase Negative (Negative) U Hyaline Cast (Auto) NONE SEEN (0-2) /LPF Urine Microscopic RBC 0-2 (0-5) /HPF Urine Microscopic WBC 0-2 (0-5) /HPF Ur Epithelial Cells None Seen (None Seen) /HPF Urine Bacteria None Seen (None Seen) /HPF Urine Culture Reflexed NO (NO) 10/22/23 Range/Units 15:40 WBC (3.98-10.04) x10^3/uL RBC (3.93-5.22) x10^6/uL Hgb (11.2-15.7) g/dL Hct (34.1-44.9) % MCV (79.4-94.8) fL MCH (25.6-32.2) pg MCHC (32.2-35.5) g/dL RDW (11.7-14.4) % Plt Count (182-369) x10^3/uL MPV (9.4-12.3) fL Gran % (34.0-71.1) % Immature Gran % (Auto) (0.001-0.429) % Nucleat RBC Rel Count (0.00-0.2) % Eos # (Auto) (0.04-0.36) x10^3/uL Immature Gran # (Auto) (0.001-0.031) x10^3u/L Absolute Lymphs (auto) (1.18-3.74) x10^3/uL Absolute Monos (auto) (0.24-0.86) x10^3/uL Absolute Nucleated RBC (0.00-0.012) x10^3u/L Lymphocytes % (19.3-51.7) % Monocytes % (4.7-12.5) % Eosinophils % (0.7-5.8) % Basophils % (0.1-1.2) % Absolute Granulocytes (1.56-6.13) x10^3/uL Basophils # (0.01-0.08) x10^3/uL D-Dimer (0.0-0.50) mg/L Sodium (135-145) mmol/L Potassium (3.5-5.1) mmol/L Chloride (98-107) mmol/L Carbon Dioxide (22-30) mmol/L Anion Gap (5-15) MEQ/L BUN (7-17) mg/dL Creatinine (0.52-1.04) mg/dL Estimated GFR ML/MIN Glucose (74-106) mg/dL Calcium (8.4-10.2) mg/dL Total Bilirubin (0.2-1.3) mg/dL AST (14-36) U/L ALT (0-35) U/L Alkaline Phosphatase (38-126) U/L Troponin I < 0.012 (0.000-0.033) ng/mL Serum Total Protein (6.3-8.2) g/dL Albumin (3.5-5.0) g/dL Lipase (23-300) U/L Urine Color (Yellow) Urine Appearance (Clear) Urine pH (4.6-8.0) Ur Specific [place] (1.005-1.030) Urine Protein (Negative) Urine Glucose (UA) (Negative) mg/dL Urine Ketones (Negative) Urine Blood (Negative) Urine Nitrite (Negative) Urine Bilirubin (Negative) Urine Urobilinogen (0.2) mg/dL Ur Leukocyte Esterase (Negative) U Hyaline Cast (Auto) (0-2) /LPF Urine Microscopic RBC (0-5) /HPF Urine Microscopic WBC (0-5) /HPF Ur Epithelial Cells (None Seen) /HPF Urine Bacteria (None Seen) /HPF Urine Culture Reflexed (NO) Accuchecks Date 10/22/23 Time 16:33 - Radiology Impressions Radiology Exams & Impressions: Radiology Procedures Category Date Time Status ABDOMEN AND PELVIS W CONTRAST [CT] Stat Exams 07/09/24 08:56 Completed CHEST WITH CONTRAST [CT] Stat Exams 10/22/23 08:55 Completed DONATO Encounter - DONATO Encounter Attestation DONATO Encounter Attestation: "[email or web address] Beebe andcarolinevediscussed pertinent aspects of their care with Sonja Liu and agree with the history, physical exam (any modifications based on my personal exam will be noted below), assessment, and plan as outlined in original note. Please see immediately below for my summary of findings and additional assessment and plan along with any meaningful corrections/explanations to the Subjective/Objective portions of the DONATO note will be noted." My portion of the encounter took place via telemedicine. -Patient with acute diverticulitis. She has had it in the past. She has never had a colonoscopy even though it was recommended to her. Admit for IV antibiotics and pain control
[2023-10-22] MEDS ORDERED: LIPITOR 40MG PO SCH (12:45)
[2023-10-22] MEDS ORDERED: Zofran 4 MG/2 ML VIAL IV PRN (13:05)
[2023-10-22] MEDS ORDERED: HUMALOG SQ PRN (13:05)
[2023-10-22] MEDS ORDERED: TYLENOL 325 MG PO PRN (13:05)
[2023-10-22] MEDS: NEURONTIN PO SCH (14:50)
[2023-10-22] MEDS: PIPERACILLIN/TAZOBACTAM 3.375 GM in Sodium Chloride 100ML MINI-BAG PLUS 100 ML IV SCH (17:09)
[2023-10-22] MEDS: Zestril 10 MG PO SCH (21:59)
[2023-10-22] MEDS: THERAGRAN MULTIVITAMIN PO SCH (21:59)
[2023-10-22] MEDS ORDERED: NON-FORMULARY ITEM (Multivitamin [Multi-Vitamin Daily] 1 EACH Tablet) PO SCH (22:00)
[2023-10-23 05:15] LABS: Absolute Neutrophil Ct (ANC) 3.99 x10^3/uL (1.56-6.13); BASOPHIL % 0.6 % (0.1-1.2); Basophil (Absolute #) 0.04 x10^3/uL (0.01-0.08); Eosinophil % 1.9 % (0.7-5.8); Eosinophil (Absolute #) 0.12 x10^3/uL (0.04-0.36); Hematocrit 40.7 % (34.1-44.9); Hemoglobin 13.6 g/dL (11.2-15.7); IMMATURE GRAN # 0.01 x10^3u/L (0.001-0.031); IMMATURE GRAN % 0.2 % (0.001-0.429); Lymphocyte (Absolute #) 1.71 x10^3/uL (1.18-3.74); Lymphocytes % 27.3 % (19.3-51.7); Mean Cell Volume 92.7 fL (79.4-94.8); Mean Corpuscular Hgb Concent. 33.4 g/dL (32.2-35.5); Mean Platelet Volume 10.9 fL (9.4-12.3); Monocytes % 6.4 % (4.7-12.5); Neutrophil % 63.6 % (34.0-71.1); Platelet Count 260 x10^3/uL (182-369); Red Blood Count 4.39 x10^6/uL (3.93-5.22); Red Cell Distribution Width 14.5 % (11.7-14.4); White Blood Count 6.3 x10^3/uL (3.98-10.04)
--- NOTE | 2023-10-23 05:22 | PCM.DS ---
Discharge Summary Date of Admission: 10/22/23 12:03 Date of Discharge: 10/23/23 Admitting Physician: SHELLIE DURANT MD Primary Care Provider: MATILDE POWERS Allergies Allergies codeine [Codeine] Allergy (Intermediate, Verified 10/22/23 12:07) itch morphine Allergy (Verified 10/22/23 12:07) Hospital Summary - Hospital Course Hospital Course: is a 53 year old female with a pmhx of HTN, DM, and MADAI who presented to ED 10/22/23 with complaints of a three day history of left upper quadrant pain . Patient states she does have a history of diverticulosis/diverticulitis. She states she had a strawberry shake and symptoms started shortly after. She has had some nausea, no vomiting, no fevers, blood in stool, or change in bowel habits. Upon arrival vitals stable. EKG NS. CT with diffuse colonic divertivulosis and mild diverticulitis of the proximal descending colon with tiny free fluid. CT chest with no acute cardiopulmonary processes. Lab findings remarkable for mild leukocytosis with wbc at 11.2 and elevated ddimer at 0.80 (negative CT for PE). Patient given levaquin, flagyl, and IVF in ED. Admission for Diverticulitis with IV zosyn. Patient tolerating diet with no abdominal pain/nausea. Labs and vitals stable. Discharge home with Augmentin. Advised follow up with PCP and OP colonoscopy. Discharge Note New Diagnosis:Diverticulitis New Medications:Augmentin Follow Up: PCP - to set up colonoscopy Latest Assessment & Plan (1) Diverticulitis Current Visit: Yes Status: Acute Onset Date: ~10/11/17 Assessment & Plan: -CT with diffuse colonic divertivulosis and mild diverticulitis of the proximal descending colon with tiny free fluid -Pt requesting CLD -states she has been tolerating in ED - can trial, NPO with meds if unable to tolerate -IVF -Supportive care with pain control/anti-emetics -Levaquin/Flagyl in ED - continue with Zosyn -Once tolerating a diet can switch to PO Augmentin -Recommend colonoscopy and GI follow up as OP 10/22: -Augmentin -Follow up with pcp for colonoscopy referral Code(s): K57.92 - DVTRCLI OF INTEST, PART UNSP, W/O PERF OR ABSCESS W/O BLEED (2) Leukocytosis Current Visit: Yes Status: Acute Assessment & Plan: -2/2 to diverticulitis - see plan above 10/22: -resolved Code(s): D72.829 - ELEVATED WHITE BLOOD CELL COUNT, UNSPECIFIED (3) HTN (hypertension) Current Visit: Yes Status: Acute Assessment & Plan: -Stable - continue home meds lisinopril, norvasc Code(s): I10 - ESSENTIAL (PRIMARY) HYPERTENSION (4) MADAI (obstructive sleep apnea) Current Visit: Yes Status: Acute Assessment & Plan: -CPAP Code(s): G47.33 - OBSTRUCTIVE SLEEP APNEA (ADULT) (PEDIATRIC) (5) HLD (hyperlipidemia) Current Visit: Yes Status: Acute Assessment & Plan: -continue statin VTE: bilateral SCD PPI: protonix Dispo: 1-2 days Code status: full code Code(s): E78.5 - HYPERLIPIDEMIA, UNSPECIFIED (6) Type 2 diabetes mellitus Current Visit: Yes Status: Acute Assessment & Plan: -Hold Jardiance/ozempic -ADA diet when able to tolerate -SSI -A1c I spent 35 minutes [id number] with the patient on the day of discharge performing discharge exam, discussing hospital stay and discharge instructions with patient and caregivers, preparation of discharge records, prescriptions & referral forms and addressing any questions/concerns the patient had as documented above. - Vitals & Intake/Output Vital Signs: Vital Signs Temperature 97.1 F 10/23/23 04:00 Pulse Rate 61 10/23/23 04:00 Respiratory Rate 14 10/23/23 04:00 Blood Pressure 118/58 10/23/23 04:00 O2 Sat by Pulse Oximetry 92 L 10/23/23 04:00 Intake & Output: Intake & Output 10/20/23 10/21/23 10/22/23 10/23/23 11:59 11:59 11:59 11:59 Intake Total 1533 Balance 1533 Weight 83.461 kg 84.9 kg - Lab Result Diagrams: 10/23/23 04:45 10/23/23 04:45 Lab Results-Last 24 Hrs: Lab Results-Last 24 Hours 10/22/23 10/22/23 10/22/23 Range/Units 07:48 07:48 07:48 WBC 11.2 H (3.98-10.04) x10^3/uL RBC 4.95 (3.93-5.22) x10^6/uL Hgb 15.7 (11.2-15.7) g/dL Hct 45.7 H (34.1-44.9) % MCV 92.3 (79.4-94.8) fL MCH 31.7 (25.6-32.2) pg MCHC 34.4 (32.2-35.5) g/dL RDW 14.1 (11.7-14.4) % Plt Count 275 (182-369) x10^3/uL MPV 10.9 (9.4-12.3) fL Gran % 82.0 H (34.0-71.1) % Immature Gran % (Auto) 0.4 (0.001-0.429) % Nucleat RBC Rel Count 0.0 (0.00-0.2) % Eos # (Auto) 0.09 (0.04-0.36) x10^3/uL Immature Gran # (Auto) 0.04 H (0.001-0.031) x10^3u/L Absolute Lymphs (auto) 1.32 (1.18-3.74) x10^3/uL Absolute Monos (auto) 0.51 (0.24-0.86) x10^3/uL Absolute Nucleated RBC 0.00 (0.00-0.012) x10^3u/L Lymphocytes % 11.8 L (19.3-51.7) % Monocytes % 4.5 L (4.7-12.5) % Eosinophils % 0.8 (0.7-5.8) % Basophils % 0.5 (0.1-1.2) % Absolute Granulocytes 9.19 H (1.56-6.13) x10^3/uL Basophils # 0.06 (0.01-0.08) x10^3/uL D-Dimer (0.0-0.50) mg/L Sodium 143 (135-145) mmol/L Potassium 4.2 (3.5-5.1) mmol/L Chloride 108 H (98-107) mmol/L Carbon Dioxide 25 (22-30) mmol/L Anion Gap 14.9 (5-15) MEQ/L BUN 13 (7-17) mg/dL Creatinine 0.78 (0.52-1.04) mg/dL Estimated GFR 89.6 ML/MIN Glucose 103 (74-106) mg/dL Calcium 9.9 (8.4-10.2) mg/dL Total Bilirubin 1.00 (0.2-1.3) mg/dL AST 23 (14-36) U/L ALT 24 (0-35) U/L Alkaline Phosphatase 115 (38-126) U/L Troponin I < 0.012 (0.000-0.033) ng/mL Serum Total Protein 7.4 (6.3-8.2) g/dL Albumin 4.5 (3.5-5.0) g/dL Lipase 44 (23-300) U/L Urine Color (Yellow) Urine Appearance (Clear) Urine pH (4.6-8.0) Ur Specific [place] (1.005-1.030) Urine Protein (Negative) Urine Glucose (UA) (Negative) mg/dL Urine Ketones (Negative) Urine Blood (Negative) Urine Nitrite (Negative) Urine Bilirubin (Negative) Urine Urobilinogen (0.2) mg/dL Ur Leukocyte Esterase (Negative) U Hyaline Cast (Auto) (0-2) /LPF Urine Microscopic RBC (0-5) /HPF Urine Microscopic WBC (0-5) /HPF Ur Epithelial Cells (None Seen) /HPF Urine Bacteria (None Seen) /HPF Urine Culture Reflexed (NO) 10/22/23 10/22/23 10/22/23 Range/Units 07:48 08:08 11:48 WBC (3.98-10.04) x10^3/uL RBC (3.93-5.22) x10^6/uL Hgb (11.2-15.7) g/dL Hct (34.1-44.9) % MCV (79.4-94.8) fL MCH (25.6-32.2) pg MCHC (32.2-35.5) g/dL RDW (11.7-14.4) % Plt Count (182-369) x10^3/uL MPV (9.4-12.3) fL Gran % (34.0-71.1) % Immature Gran % (Auto) (0.001-0.429) % Nucleat RBC Rel Count (0.00-0.2) % Eos # (Auto) (0.04-0.36) x10^3/uL Immature Gran # (Auto) (0.001-0.031) x10^3u/L Absolute Lymphs (auto) (1.18-3.74) x10^3/uL Absolute Monos (auto) (0.24-0.86) x10^3/uL Absolute Nucleated RBC (0.00-0.012) x10^3u/L Lymphocytes % (19.3-51.7) % Monocytes % (4.7-12.5) % Eosinophils % (0.7-5.8) % Basophils % (0.1-1.2) % Absolute Granulocytes (1.56-6.13) x10^3/uL Basophils # (0.01-0.08) x10^3/uL D-Dimer 0.80 H* (0.0-0.50) mg/L Sodium (135-145) mmol/L Potassium (3.5-5.1) mmol/L Chloride (98-107) mmol/L Carbon Dioxide (22-30) mmol/L Anion Gap (5-15) MEQ/L BUN (7-17) mg/dL Creatinine (0.52-1.04) mg/dL Estimated GFR ML/MIN Glucose (74-106) mg/dL Calcium (8.4-10.2) mg/dL Total Bilirubin (0.2-1.3) mg/dL AST (14-36) U/L ALT (0-35) U/L Alkaline Phosphatase (38-126) U/L Troponin I < 0.012 (0.000-0.033) ng/mL Serum Total Protein (6.3-8.2) g/dL Albumin (3.5-5.0) g/dL Lipase (23-300) U/L Urine Color Yellow (Yellow) Urine Appearance Clear (Clear) Urine pH 7.0 (4.6-8.0) Ur Specific [place] 1.010 (1.005-1.030) Urine Protein Negative (Negative) Urine Glucose (UA) 500 A (Negative) mg/dL Urine Ketones Negative (Negative) Urine Blood Negative (Negative) Urine Nitrite Negative (Negative) Urine Bilirubin Negative (Negative) Urine Urobilinogen 0.2 (0.2) mg/dL Ur Leukocyte Esterase Negative (Negative) U Hyaline Cast (Auto) NONE SEEN (0-2) /LPF Urine Microscopic RBC 0-2 (0-5) /HPF Urine Microscopic WBC 0-2 (0-5) /HPF Ur Epithelial Cells None Seen (None Seen) /HPF Urine Bacteria None Seen (None Seen) /HPF Urine Culture Reflexed NO (NO) 10/22/23 Range/Units 15:40 WBC (3.98-10.04) x10^3/uL RBC (3.93-5.22) x10^6/uL Hgb (11.2-15.7) g/dL Hct (34.1-44.9) % MCV (79.4-94.8) fL MCH (25.6-32.2) pg MCHC (32.2-35.5) g/dL RDW (11.7-14.4) % Plt Count (182-369) x10^3/uL MPV (9.4-12.3) fL Gran % (34.0-71.1) % Immature Gran % (Auto) (0.001-0.429) % Nucleat RBC Rel Count (0.00-0.2) % Eos # (Auto) (0.04-0.36) x10^3/uL Immature Gran # (Auto) (0.001-0.031) x10^3u/L Absolute Lymphs (auto) (1.18-3.74) x10^3/uL Absolute Monos (auto) (0.24-0.86) x10^3/uL Absolute Nucleated RBC (0.00-0.012) x10^3u/L Lymphocytes % (19.3-51.7) % Monocytes % (4.7-12.5) % Eosinophils % (0.7-5.8) % Basophils % (0.1-1.2) % Absolute Granulocytes (1.56-6.13) x10^3/uL Basophils # (0.01-0.08) x10^3/uL D-Dimer (0.0-0.50) mg/L Sodium (135-145) mmol/L Potassium (3.5-5.1) mmol/L Chloride (98-107) mmol/L Carbon Dioxide (22-30) mmol/L Anion Gap (5-15) MEQ/L BUN (7-17) mg/dL Creatinine (0.52-1.04) mg/dL Estimated GFR ML/MIN Glucose (74-106) mg/dL Calcium (8.4-10.2) mg/dL Total Bilirubin (0.2-1.3) mg/dL AST (14-36) U/L ALT (0-35) U/L Alkaline Phosphatase (38-126) U/L Troponin I < 0.012 (0.000-0.033) ng/mL Serum Total Protein (6.3-8.2) g/dL Albumin (3.5-5.0) g/dL Lipase (23-300) U/L Urine Color (Yellow) Urine Appearance (Clear) Urine pH (4.6-8.0) Ur Specific [place] (1.005-1.030) Urine Protein (Negative) Urine Glucose (UA) (Negative) mg/dL Urine Ketones (Negative) Urine Blood (Negative) Urine Nitrite (Negative) Urine Bilirubin (Negative) Urine Urobilinogen (0.2) mg/dL Ur Leukocyte Esterase (Negative) U Hyaline Cast (Auto) (0-2) /LPF Urine Microscopic RBC (0-5) /HPF Urine Microscopic WBC (0-5) /HPF Ur Epithelial Cells (None Seen) /HPF Urine Bacteria (None Seen) /HPF Urine Culture Reflexed (NO) Micro Results-Entire Visit: Accuchecks Date 10/22/23 Date 10/22/23 Time 21:45 Time 16:33 - Radiology Exams Ordered Rad Exams-Entire Visit: Radiology Procedures Category Date Time Status ABDOMEN AND PELVIS W CONTRAST [CT] Stat Exams 10/22/23 08:56 Completed CHEST WITH CONTRAST [CT] Stat Exams 10/22/23 08:55 Completed - Procedures and Test Procedures and Tests throughout Hospitalization: Therapy Orders & Screens 10/22/23 13:05 BiPap/CPAP ROUTINE Comment: Diagnosis: Diverticulitis Discharge Exam General Appearance: no apparent distress Neurologic Exam: alert, oriented x 3, cooperative Eye Exam: PERRL Ears, Nose, Throat Exam: normal ENT inspection Neck Exam: normal inspection Respiratory Exam: normal breath sounds, lungs clear Cardiovascular Exam: regular rate/rhythm, normal heart sounds Gastrointestinal/Abdomen Exam: soft, normal bowel sounds Pelvic Exam: deferred Rectal Exam: deferred Back Exam: normal inspection Extremity Exam: normal inspection Skin Exam: normal color Final Diagnosis/Problem List - Final Discharge Diagnosis/Problem (1) Diverticulitis Current Visit: Yes Status: Acute Onset Date: ~10/11/17 Code(s): K57.92 - DVTRCLI OF INTEST, PART UNSP, W/O PERF OR ABSCESS W/O BLEED (2) Leukocytosis Current Visit: Yes Status: Resolved Code(s): D72.829 - ELEVATED WHITE BLOOD CELL COUNT, UNSPECIFIED (3) HTN (hypertension) Current Visit: Yes Status: Chronic Code(s): I10 - ESSENTIAL (PRIMARY) HYPERTENSION (4) MADAI (obstructive sleep apnea) Current Visit: Yes Status: Chronic Code(s): G47.33 - OBSTRUCTIVE SLEEP APNEA (ADULT) (PEDIATRIC) (5) HLD (hyperlipidemia) Current Visit: Yes Status: Chronic Code(s): E78.5 - HYPERLIPIDEMIA, UNSPECIFIED (6) Type 2 diabetes mellitus Current Visit: Yes Status: Chronic - Discharge Disposition: Home, Self-Care Condition: Stable Prescriptions: New Amox Tr/Potass Clav. 875 mg [Augmentin 875-125 Tablet] 875 mg PO BID 10 Days #20 tablet Continue Lisinopril 10 mg [Zestril 10 MG] 20 mg PO BID PANTOPRAZOLE 40 mg Tablet [Protonix 40MG Tablet] 40 mg PO DAILY Amlodipine Besylate 5 mg [Norvasc 5 mg] 5 mg PO DAILY #30 tablet Atorvastatin Calcium 40 mg PO UD Empagliflozin [Jardiance] 25 mg PO DAILY Gabapentin [Neurontin ] 300 mg PO TID Semaglutide [Ozempic] 0.25 mg SQ WEEKLY Multivitamin [Multi-Vitamin Daily] 1 tablet PO HS Instructions: Diverticulosis (DC) Follow up with: MATILDE POWERS [Primary Care Provider] - 10/31/23 3:45 pm (at [facility])
[2023-10-23 05:55] LABS: ALBUMIN 3.8 g/dL (3.5-5.0); ANION GAP 12.6 MEQ/L (5-15); Calcium 9.6 mg/dL (8.4-10.2); Creatinine 1 0.68 mg/dL (0.52-1.04); EST GLOMERULAR FILTRATION RATE 102.8 ML/MIN; Potassium 4.1 mmol/L (3.5-5.1); Total Protein 6.3 g/dL (6.3-8.2)
[2023-10-23 07:26] VITALS: RESP 16
[2023-10-23] MEDS: NORVASC 5 MG PO SCH (09:12)
[2023-10-23] MEDS: Protonix 40MG Tablet PO SCH (09:12)
[2023-10-23 12:13] VITALS: BP 152/91; PULSE 70; TEMP 97.4; O2SAT 96
[2023-10-23] MEDS ORDERED: ZOCOR 20MG PO SCH (20:00)
== END 2023-10-23 14:05 | disposition home or self-care (01) ==
LOC: ED 07:23 → MED SURG 12:03
PROVIDERS: ADMIT Internal Medicine; ATTEND Internal Medicine
DX: K57.92 Diverticulitis of intestine, part unspecified, without perforation or abscess without bleeding (principal); D72.829 Elevated white blood cell count, unspecified; I10 Essential (primary) hypertension; G47.33 Obstructive sleep apnea (adult) (pediatric); E78.5 Hyperlipidemia, unspecified; E11.9 Type 2 diabetes mellitus without complications; Z79.899 Other long term (current) drug therapy
CPT/HCPCS: 36000; 36415; 71260; 74177; 80053; 81001; 83690; 84484; 85025; 85379; 93005; 93041; 94760; 94762; 96365; 96367; 96374; 96375; 99285; Q3014; 93268; J1885; J1956; J2405; A9270-GY; G0378

== ENCOUNTER 2024-04-23 13:18 | Day surgery (SDC) | payer OTHER ==
[2012-04-19 21:59] VITALS: BP 160/89
[2024-04-23] MEDS ORDERED: LIDOCAINE HCL 1% 50 MG/5 ML VL IJ ONE (13:19)
[2024-04-23] MEDS ORDERED: methylPREDNISolone acetate IM ONE (13:19)
[2024-04-23] MEDS ORDERED: BUPIVACAINE 0.5% VIAL IJ ONE (13:19)
--- NOTE | 2024-04-23 17:19 | XRAY ---
Indication: Left knee injection. Intraoperative fluoroscopy provided for 1 second. Single digital spot image obtained prone submitted for interpretation demonstrates needle tip projecting over the left femur intercondylar notch. Small amount of contrast injected for needle tip placement. Correlate with intraoperative findings/report.
--- NOTE | 2024-04-23 17:33 | XRAY ---
11 seconds of fluoroscopy was used in surgery for a left intra-articular knee and infrapatellar bursa injection.
== END 2024-04-23 16:45 | disposition home or self-care (01) ==
LOC: SDC-PAIN 13:18
PROVIDERS: ATTEND Psychiatry & Neurology Pain Medicine
DX: M17.12 Unilateral primary osteoarthritis, left knee (principal); E11.9 Type 2 diabetes mellitus without complications
CPT/HCPCS: 20610; 73560; 77002; 82947; J1010; Q9966

== ENCOUNTER 2024-05-21 07:52 | Day surgery (SDC) | payer OTHER ==
--- NOTE | 2024-05-20 10:29 | HP ---
HISTORY OF PRESENT ILLNESS: Patient is a 53-year-old female who presents with a history of some diverticulitis. I do not think these episodes were anytime recently. She has no recent colonoscopy to date. She presents for screening. PAST MEDICAL HISTORY: Asthma, arthritis, hyperlipidemia, GERD, hypertension, mitral regurgitation. HOME MEDICATIONS: Per chart. ALLERGIES: Codeine, morphine. PAST SURGICAL HISTORY: Tubal ligation, hip replacement, knee, arthroplasties. SOCIAL HISTORY: Negative. FAMILY HISTORY: Breast cancer. REVIEW OF SYSTEMS: CONSTITUTIONAL: Denies fever or chills. CHEST: Denies shortness of breath. CARDIOVASCULAR: Denies chest pain. ABDOMEN: Denies abdominal pain. PHYSICAL EXAMINATION: GENERAL: No acute distress. CARDIOVASCULAR: Regular rate and rhythm. RESPIRATORY: Nonlabored. No shortness of breath. ABDOMEN: Soft. ASSESSMENT: Screening. PLAN: Colonoscopy with Dr. Joaquim Kauffman. This report was dictated for Dr. Kauffman by Karen Watson NP.
[2024-05-21] MEDS ORDERED: Lactated Ringers 1,000 ML IV ONE (08:23)
[2024-05-21] MEDS: Lactated Ringers 1,000 ML IV SCH (08:25)
[2024-05-21 08:32] VITALS: RESP 16
[2024-05-21 08:37] LABS: Absolute Neutrophil Ct (ANC) 4.22 x10^3/uL (1.56-6.13); BASOPHIL % 0.6 % (0.1-1.2); Basophil (Absolute #) 0.04 x10^3/uL (0.01-0.08); Eosinophil % 1.4 % (0.7-5.8); Eosinophil (Absolute #) 0.09 x10^3/uL (0.04-0.36); Hematocrit 42.7 % (34.1-44.9); Hemoglobin 14.4 g/dL (11.2-15.7); IMMATURE GRAN # 0.01 x10^3u/L (0.001-0.031); IMMATURE GRAN % 0.2 % (0.001-0.429); Lymphocyte (Absolute #) 1.61 x10^3/uL (1.18-3.74); Lymphocytes % 25.4 % (19.3-51.7); Mean Corpuscular Hemoglobin 31.4 pg (25.6-32.2); Mean Corpuscular Hgb Concent. 33.7 g/dL (32.2-35.5); Mean Platelet Volume 10.3 fL (9.4-12.3); Monocyte (Absolute #) 0.38 x10^3/uL (0.24-0.86); Neutrophil % 66.4 % (34.0-71.1); Platelet Count 287 x10^3/uL (182-369); Red Blood Count 4.59 x10^6/uL (3.93-5.22); Red Cell Distribution Width 14.2 % (11.7-14.4); White Blood Count 6.4 x10^3/uL (3.98-10.04)
[2024-05-21 08:50] LABS: ANION GAP 14.4 MEQ/L (5-15); Calcium 9.5 mg/dL (8.4-10.2); Creatinine 1 0.75 mg/dL (0.52-1.04); Potassium 3.9 mmol/L (3.5-5.1)
[2024-05-21] MEDS ORDERED: Reglan 10 MG/2 ML ONE (08:52)
[2024-05-21] MEDS ORDERED: Pepcid 20 MG VIAL IV ONE (08:52)
[2024-05-21] MEDS: Pepcid 20 MG VIAL IV ONE (08:54)
[2024-05-21] MEDS: Reglan 10 MG/2 ML IV ONE (08:54)
[2024-05-21] MEDS ORDERED: propofoL IV ONE (10:34)
[2024-05-21] MEDS ORDERED: Versed 2 MG/2 ML Injection ONE (10:37)
[2024-05-21 11:43] VITALS: BP 142/84; PULSE 86; TEMP 97.6; O2SAT 98
--- NOTE | 2024-05-22 14:26 | OP ---
SURGERY DATE/TIME: 05/21/2024 [id number] PREOPERATIVE DIAGNOSIS: Screening. POSTOPERATIVE DIAGNOSES: A 1.5 cm cecal polyp. PROCEDURE: Colonoscopy to cecum with hot polypectomy x2. SURGEON: Joaquim Kauffman MD ANESTHESIA: General. COMPLICATIONS: None. CONDITION: Stable. INDICATIONS: Please refer to Dr. Nick for colonoscopic examination. DESCRIPTION OF PROCEDURE AND FINDINGS: Patient was taken to endoscopy. Left lateral decubitus position. Anal digital examination was satisfactory. The scope was advanced to the cecum. Base of cecum normal. Ileocecal valve, appendiceal orifice; on the medial lip of the ileocecal valve there was a sessile polyp about 3 mm long, about 3 mm wide. Cauterized in 3 places with electrocautery. On circumferential withdrawal, mucosa was satisfactory. No additional lesions noted. Followup 5 years.
== END 2024-05-21 11:56 | disposition home or self-care (01) ==
LOC: SDC 07:52
PROVIDERS: ATTEND Surgery
DX: Z12.11 Encounter for screening for malignant neoplasm of colon (principal); Z80.3 Family history of malignant neoplasm of breast; Z87.19 Personal history of other diseases of the digestive system; D12.0 Benign neoplasm of cecum
CPT/HCPCS: 36415; 80048; 85025; 93005; J2250; J2704